=== PATIENT | female | born 1955 | race Caucasian/White ===

== ENCOUNTER → 2017-10-16 09:13 | Outpatient (CLI) | payer OTHER, SELFPAY ==
--- NOTE | 2017-10-16 09:18 | MM_ITS ---
MM Dig screening mamm BI w/CAD CAD Screening ORDERING PHYSICIAN : Jw Montelongo MD PATIENT AGE: 62 years GENDER: Female COMPARISON: Previous mammograms: 2013, 2013, 2016, 2017 INDICATION: 62-year-old. No hormones no complaints previous breast reduction. Stereotactic biopsy April 2013 Family history. Half sister with breast cancer. TECHNIQUE: Standard CC and MLO images were obtained. R2 CAD reviewed. FINDI NGS: ... clinically the technologist notes breast reduction scars at the inferior breast bilaterally . Low-density breast bilaterally with generalized fatty replacement. . No significant new areas concern. Minimal arm glandular elements with mild asymmetry similar to previous studies. CAD computer review highlights no areas of concern either. RIGHT BREAST:A stereotactic biopsy with residual metallic clip marker at biopsy site seen at the retroareolar region on right. Calcifications from 2013 at this area were removed.. No dominant mass to residual suspicious calcification. With Stable appearance over the past few years in this area LEFT BREAST:Left breast stable unchanged. No new findings Follow up one year ------IMPRESSION: --- Stable bilateral mammogram with no significant new findings. Low-density breast. Minor stable changes from previous breast reduction bilaterally, as well as 2013 stereotactic biopsy retroareolar region on right. No new findings BI-RADS Category: 2 Benign Finding(s) RECOMMENDED FOLLOW-UP: 1YR - 1 YEAR FOLLOW-UP (A letter has been sent to the patient regarding results of the study.)
== END ==
PROVIDERS: Family Provider Family Medicine; PCP Family Medicine; Visit Provider Nurse Practitioner Obstetrics & Gynecology
DX: Z12.31 Encounter for screening mammogram for malignant neoplasm of breast (principal)
CPT/HCPCS: 77067

== ENCOUNTER → 2017-11-13 12:40 | Outpatient (CLI) | payer OTHER, SELFPAY ==
[2017-11-13 13:00] LABS: Blood Urea Nitrogen 11 mg/dL (7-18); Creatinine,Serum 0.75 mg/dL (0.55-1.02); Estimated Glomerular Filt Rate 78 ml/min (>60); GFR (African American) 94 ML/MIN (>60)
--- NOTE | 2017-11-13 13:39 | CT_ITS ---
CT sinus wo/w con CLINICAL INDICATION: Chronic sinusitis, right-sided facial pressure, blocked sinus ITS.REASON: right sinus press. ORDERING PHYSICIAN: Luis Fairbanks MD PATIENT AGE: 62 years COMPARISON: None TECHNIQUE:Axial, sagittal, and coronal images are generated and reviewed without and with 100 mL's of Isovue-[address] scans at the facility use one or more dose reduction, viz: automated exposure control; ma/kV adjustment per patient size (including targeted exams where dose is matched to indication; i.e. head); or iterative reconstruction technique. FINDINGS: The frontal, sphenoid, and maxillary sinuses have an unremarkable appearance. There is an opacified right ethmoid air cell posteriorly and superiorly and opacified left ethmoid air cells posteriorly. The ostiomeatal complexes are patent. There is a small right michelle bullosa. No significant nasal septal deviation. No abnormal enhancement. No sinus mass. There are mild osteoarthritic changes of the TMJs on both sides right greater than left. No mastoid effusion. The middle ears are pneumatized. There are some mild sclerosis of the inferior aspect of the left mastoid sinus. IMPRESSION: 1. Bilateral ethmoid sinus disease. 2. Otherwise negative CT sinuses
== END ==
PROVIDERS: Family Provider Family Medicine; PCP Family Medicine; Visit Provider Otolaryngology
DX: J32.0 Chronic maxillary sinusitis (principal); J34.2 Deviated nasal septum; J30.9 Allergic rhinitis, unspecified
CPT/HCPCS: 36415; 70488; 82565; 84520; Q9967

== ENCOUNTER → 2018-10-22 08:16 | Outpatient (CLI) | payer OTHER, SELFPAY ==
--- NOTE | 2018-10-22 08:18 | MM_ITS ---
MM Dig screening mamm BI w/CAD ORDERING PHYSICIAN : Jw Montelongo MD PATIENT AGE: 63 years GENDER: Female COMPARISON: June 1999 October INDICATION: .: Routine Screening Mammogram no hormones. No new complaints. Family history.Half Sister with breast cancer TECHNIQUE: Standard CC and MLO images were obtained. R2 CAD reviewed. FINDINGS: Lower density breast. Breast bilaterally. Minimal fibroglandular elements most evident towards upper outer quadrant. Minimal fibroglandular elements No significant new areas of concern. No dominant mass. No significant calcifications. CAD computer review highlights no areas of concern either. RIGHT BREAST:No new areas of concern. Previous stereotactic biopsy removing calcifications at the retroareolar region, performed I believe in 2012 or 2013. No new areas of concern on the right. LEFT BREAST:Follow-up in one year adequate No significant new areas of concern.Areas of minimal density on MLO view are similar to 2013 IMPRESSION: ...... No significant new areas of concern either breast. Adequate stable appearance . Previous biopsy right breast noted Bilateral follow-up one year recommended BI-RADS Category: 2 Benign Finding(s) RECOMMENDED FOLLOW-UP: 1YR 1 YEAR FOLLOW-UP (A letter has been sent to the patient regarding results of the study.)
== END ==
PROVIDERS: PCP Family Medicine; Visit Provider Nurse Practitioner Obstetrics & Gynecology
DX: Z12.31 Encounter for screening mammogram for malignant neoplasm of breast (principal)
CPT/HCPCS: 77067

== ENCOUNTER → 2019-08-15 08:05 | Outpatient (CLI) | payer MEDICARE, OTHER, SELFPAY ==
--- NOTE | 2019-08-15 08:18 | MR_ITS ---
PROCEDURE: MR HEAD/BRAIN WO/W CON CLINICAL INDICATION: NEW ONSET HEADACHE, NOCTUMAL HEADACHES New onset headache, left-sided headache COMPARISON: No exams were available for comparison TECHNIQUE: Routine multiplanar multi echo sequences are performed without and with gadolinium enhancement. The FINDINGS: No midline shift, mass effect, intracranial hemorrhage, or hydrocephalus. Cerebellopontine angles, cerebellum, and brainstem are unremarkable. There are a few periventricular and subcortical T2 white matter hyperintensities nonspecific but may be seen with ischemic gliotic change from microvascular disease. Incidental note also made of a few perivascular dilated spaces. The pituitary, optic chiasm, corpus callosum, and craniocervical junction have an unremarkable appearance. No enhancing lesions are evident. There is opacified right ethmoid air cells. No sinus air-fluid level or mastoid effusion. IMPRESSION: 1. No acute intracranial findings. 2. Right ethmoid sinus disease. Dictated by: Markell Banks MD 08/16/2019 08:43 Electronically signed by Markell Banks MD in [place] 08/16/2019 08:43
[2019-08-15 08:29] LABS: Blood Urea Nitrogen 16 mg/dl (7-17); Estimated Glomerular Filt Rate 72 ml/min (>60); GFR (African American) 87 ML/MIN (>60)
== END ==
PROVIDERS: PCP Family Medicine; Visit Provider Family Medicine
DX: R51 Headache (principal)
CPT/HCPCS: 36415; 70553; 82565; 84520; A9576

== ENCOUNTER → 2020-01-08 10:39 | Outpatient (CLI) | payer MEDICARE, OTHER, SELFPAY ==
--- NOTE | 2020-01-08 10:40 | MM_ITS ---
PROCEDURE: MM DIG SCREENING MAMM BI W/CAD DIGITAL BREAST TOMOSYNTHESIS INCLUDED Patient Age:64Y CLINICAL INDICATION: Routine screening mammogram. Previous breast reduction bilateral. No hormones but no new complaints. Family history: Half sister with breast cancer COMPARISON: [facility] DIG MAMM-SCREEN YAYO from 03/12/2013 [facility] DIG MAMM-DX UNI-RT from 05/01/2013 [facility] DIG MAMM-SCREEN YAYO from 06/09/2014 [facility] DIG MAMM-SCREEN YAYO from 07/09/2015 [facility] DIG MAMM-SCREEN YAYO W/CAD from 07/11/2016 [facility] MM Dig screening mamm BI w/CAD from 10/16/2017 DIG MAMM-SCREEN YAYO from 10/22/2018 TECHNIQUE: Standard CC and MLO images were obtained. R2 CAD reviewed. Bilateral digital breast tomosynthesis included. FINDINGS: Stable bilateral mammogram with no new areas [id number] residual fibroglandular elements most evident retroareolar region and extending towards upper-outer quadrant but stable architecture with no new dominant nor suspicious mass. No suspicious appearing calcifications but Right breast. Small metallic marker from previous stereotactic biopsy central retroareolar region again noted.. No new areas of concern on the right-stable features Left breast. small density focus at superior left breast MLO view stable since 2016, 2015 2012.-and can be followed. Suspect intramammary node or similar benign feature. On final review also note few small loosely grouped calcifications axillary tail left the breast towards upper-outer quadrant but these are most likely benign calcifications but have developed since previous studies. I strongly favor a benign and thus feel a follow-up left mammogram 6 months left breast-with additional axillary cc view, as well as magnification spot 90 degree and CC view would be most appropriate in the current environment IMPRESSION: LEFT BREAST: Stable architecture no mass lesions left breast, but there are 3 or 4 tiny new calcifications at axillary tail left breast-strongly favor benign but would suggest a follow-up 6 month left mammogram with additional views as outlined in text Stable RIGHT BREAST mammogram with no new areas concern right mammogram 1 year recommended BI-RAD Category: 3 Probably Benign Finding Short Term Follow-up FOLLOW-UP: 1YR 1 Year Follow-up the the the the the (A letter has been sent to the patient regarding results of the study.) Dictated by: Amarjit Sylvester MD 01/13/2020 14:07 Electronically signed by Amarjit Sylvester MD in [place] 01/13/2020 14:07
== END ==
PROVIDERS: PCP Family Medicine; Visit Provider Nurse Practitioner Obstetrics & Gynecology
DX: Z12.31 Encounter for screening mammogram for malignant neoplasm of breast (principal)
CPT/HCPCS: 77063; 77067

== ENCOUNTER → 2020-07-13 14:23 | Outpatient (CLI) | payer MEDICARE, OTHER, SELFPAY ==
--- NOTE | 2020-07-13 14:23 | MM_ITS ---
PROCEDURE: MM DIG MAMM DX UNILAT LT CAD Digital Breast Tomosynthesis Included CLINICAL INDICATION: abnormal findings on previous mammogram COMPARISON: MG [facility] MM Dig screening mamm BI w/CAD from 10/16/2017 MG DIG MAMM-SCREEN YAYO from 10/22/2018 MG MM DIG SCREENING MAMM BI W/CAD from 01/08/2020 TECHNIQUE: Standard CC and MLO images and 3D Tomosynthesis was obtained. R2 CAD reviewed. MLO and CC views were obtained as well. FINDINGS: The small grouping of microcalcifications near the axillary tail left breast are again seen and have somewhat indeterminate amorphous appearance. There may be a couple of additional calcifications on today's exam not seen on the previous left mammogram 01/08/2020. I believe biopsy is indicated since there were not definitely seen on the mammograms prior to December 2019. IMPRESSION: Relatively new somewhat indeterminate grouping of microcalcifications left breast and recommend the patient have BI-RAD Category: 4 Suspicious Abnormality - Biopsy Considered FOLLOW-UP: Biopsy (A letter has been sent to the patient regarding results of the study.) Dictated by: Dr. Jay Jay Trevizo MD 07/21/2020 13:01 Dr. Jay Jay Trevizo MD in [place] 07/21/2020 13:01
== END ==
PROVIDERS: PCP Family Medicine; Visit Provider Nurse Practitioner Obstetrics & Gynecology
DX: R92.8 Other abnormal and inconclusive findings on diagnostic imaging of breast (principal)
CPT/HCPCS: 77061; 77065; G0279

== ENCOUNTER → 2020-08-05 10:19 | Outpatient (CLI) | payer MEDICARE, OTHER, SELFPAY ==
--- NOTE | 2020-08-05 | MM_ITS ---
PROCEDURE: MM STEREOTACTIC LOC LT CLINICAL INDICATION: stereotactic Lt. breast Biopsy Abnormal calcifications in the upper outer quadrant. TECHNIQUE: The patient was given 1 mg of Xanax, Lortab 7 point mg, and analgesia and minor sedation. The patient was placed on the stereotactic table and the left breast calcifications were localized in the most appropriate projection. The left breast was prepped in the routine manner, with sterile prep and the overlying skin anesthetized. A 3 to 4 mm skin incision was performed and the 9 gauge sorus vacuum-assisted core biopsy needle was advanced to the region of the calcification. Pre- and post fire images were obtained. After adequate positioning relative to the calcifications was ensured, multiple biopsies were obtained in the region of the calcifications specifically. The core biopsies obtained were sent for specimen mammography. After the calcifications were indeed identified on the specimen mammogram, the procedure was terminated. The patient tolerated the procedure well without complications. A tiny titanium nonferromagnetic MicroMark was positioned through the mammotome needle into the biopsy site. Pathology: Benign breast parenchymal with fat necrosis. Microcalcifications. Negative for in situ and invasive malignancy. The IMPRESSION: 1. Successful stereotactic vacuum-assisted core biopsy of the breast calcifications. 2. Successful placement of a titanium metal MicroMark. 3. No noted complications. SPECIMEN RADIOGRAPH: The mammographically evident calcifications from the prior study are currently evident within the Mary dish and within the specimens obtained during mammotome procedure. This is considered an adequate specimen and the procedure was terminated. IMPRESSION: Successful removal of described breast calcifications. BREAST MAMMOGRAM: Compared to the prior study, the previously noted calcification have been removed. A small MicroMark clip was inserted into the region of the calcifications. There is evidence of soft tissue changes in the region of the biopsy was soft tissue gas and edema. 4. Adequate placement of the MicroMark clip postbiopsy. 5. Postbiopsy changes within the breast. 6. Suggest six-month mammographic follow-up per routine post biopsy protocol. Dictated by: Markell Banks MD 08/18/2020 09:18 Markell Banks MD in [place] 08/18/2020 09:18
== END ==
PROVIDERS: PCP Family Medicine; Visit Provider Nurse Practitioner Obstetrics & Gynecology
DX: R92.8 Other abnormal and inconclusive findings on diagnostic imaging of breast (principal); R92.1 Mammographic calcification found on diagnostic imaging of breast
CPT/HCPCS: 19081; 76098; 77065; 88305

== ENCOUNTER → 2021-02-08 14:10 | Outpatient (CLI) | payer MEDICARE, OTHER, SELFPAY ==
--- NOTE | 2021-02-08 14:10 | MM_ITS ---
PROCEDURE: MM DIG MAMM DX UNILAT LT CAD Digital Breast Tomosynthesis Included CLINICAL INDICATION: abnormal findings on diagnostic imaging of breast COMPARISON: MG MM DIG SCREENING MAMM BI W/CAD from 01/08/2020 MG MM DIG MAMM DX UNILAT LT CAD from 07/13/2020 MG MM CLIP PLACEMENT LT from 08/05/2020 MG MM SURGICAL SPECIMEN LT from 08/05/2020 MG MM STEREOTACTIC LOC LT from 08/05/2020 TECHNIQUE: Standard CC and MLO images and 3D Tomosynthesis was obtained. R2 CAD reviewed. FINDINGS: There are scattered areas of fibroglandular density. Biopsy clip is present in the upper outer aspect of the left breast. Previously noted microcalcifications longer apparent. No suspicious appearing mass, malignant-appearing microcalcification, architectural distortion, or skin thickening. IMPRESSION: Benign findings. Suggest screening mammogram of the right breast as soon as possible as the patient is due for her yearly follow-up. BI-RAD Category: 2 Benign Finding FOLLOW-UP: Suggest right screening mammogram as soon as possible. (A letter has been sent to the patient regarding results of the study.) Dictated by: Markell Banks MD 02/11/2021 18:31 Markell Banks MD in [place] 02/11/2021 18:31
== END ==
PROVIDERS: PCP Family Medicine; Visit Provider Nurse Practitioner Obstetrics & Gynecology
DX: R92.8 Other abnormal and inconclusive findings on diagnostic imaging of breast (principal)
CPT/HCPCS: 77061; 77065; G0279

== ENCOUNTER → 2021-08-16 07:42 | Outpatient (CLI) | payer MEDICARE, OTHER, SELFPAY ==
--- NOTE | 2021-08-16 07:42 | MM_ITS ---
PROCEDURE INFORMATION: Exam: MG Bilateral Screening 3D Mammography Exam date and time: 08/16/2021 7:42 AM Age: 66 years old Clinical indication: Encounter for screening mammogram for malignant neoplasm of breast TECHNIQUE: Imaging protocol: Bilateral Screening tomosynthesis and 2D mammography including computer-aided detection (CAD) when performed. COMPARISON: 1. MG MM DIG MAMM DX UNILAT LT CAD 02/08/2021 2:11 PM 2. MG MM DIG SCREENING MAMM BI W/CAD 01/08/2020 10:50 AM 3. MG DIG MAMM-SCREEN YAYO 10/22/2018 8:43 AM 4. MG [facility] MM Dig screening mamm BI w/CAD 10/16/2017 9:34 AM 5. MG [facility] DIG MAMM-SCREEN YAYO W/CAD 07/11/2016 9:07 AM 6. MG [facility] DIG MAMM-SCREEN YAYO 07/09/2015 10:53 AM FINDINGS: MAMMOGRAPHY: Breast composition: The breasts are almost entirely fatty. Mass: No suspicious mass. Architectural distortion: None. Calcifications: No suspicious calcifications. Asymmetric density: No developing asymmetry. Skin thickening: None. Axillary adenopathy: None. Other: Bilateral biopsy clips. IMPRESSION: No mammographic evidence of malignancy. Annual screening is recommended unless otherwise clinically indicated. ASSESSMENT: BI-RADS Category 1: Negative
== END ==
PROVIDERS: PCP Nurse Practitioner Family; Visit Provider Nurse Practitioner Obstetrics & Gynecology
DX: Z12.31 Encounter for screening mammogram for malignant neoplasm of breast (principal)
CPT/HCPCS: 77063; 77067

== ENCOUNTER 2022-01-30 08:40 | Emergency (ER) | payer MEDICARE, OTHER, SELFPAY ==
[2022-01-30 08:50] VITALS: BP 132/79; PULSE 93; RESP 18; TEMP 36.9; O2SAT 97; BMI 25.7
--- NOTE | 2022-01-30 09:04 | HMH.EDUTC ---
[facility] Disposition Clinical Impression: Encounter for laboratory testing for COVID-19 virus, Nasal congestion Disposition: Home, Self-Care Condition on Discharge: Good Instructions: DI for COVID-19 (Suspected or Confirmed ), Preventing the Spread of Coronavirus Discharge Instructions Additional Instructions: *Monitor Temp, Over the counter Motrin or Tylenol as directed/as needed Tylenol every 4 hours and Motrin every 6 hours (as long as your family doctor has told you that you can take it) for fever or pain. and straight to ER if unable to lower temp less than 101.0 after medication given *Warm salt water gargles may help to soothe the throat *Throat Lozenges *Warm fluids like tea with honey may help to soothe the throat *Sleep elevated *Humidifier/Vaporizer Follow up IMMEDIATELY for new or worsening symptoms or no Noticeable improvement over the next 48-72 hours. 911 for difficulty breathing or swallowing You were tested for today for COVID19 your test result should be back in the next 24-48 hours, you may check your results on the [facility] My Health Portal Make sure to take your Vitamins Vit. C Vit D and Zinc if you can take them Referrals: Suzanne Mae APRN [Primary Care Provider] - As needed Forms: Work/School Release Medical Decision Making - Moo Inquiry Pt receiving controlled substance: No Moo was queried for this patient: No Vital Signs: 01/30/22 08:50 Temperature 98.4 F Temperature Source Oral Pulse Rate [Left Brachial] 93 H Respiratory Rate 18 Blood Pressure [Left Arm] 132/79 Blood Pressure Mean [Left Arm] 96 Blood Pressure Source [Left Arm] Automatic Cuff Blood Pressure Position [Left Arm] Sitting 02 Sat by Pulse Oximetry 97 Oxygen Delivery Method Room Air Orders (Tests/Meds): ORDERS Category Date Time Status Full Resp Panel w/COVID ([facility]) Routine Lab 01/30/22 09:03 Ordered [facility] HPI - General Stated complaint: Sore throat, upper congestion, loss of taste Time Seen by Provider: 01/30/22 09:04 Mode of Arrival: Ambulatory Source of Information: Patient Limitations: No Limitations Description of Symptoms (Recalled from Triage Doc. by RN): PATIENT C/O BODY ACHES, CONGESTION, AND LOSS OF TASTE SINCE MONDAY NIGHT. HEENT Symptoms (Recalled from RN notes): Yes Resp Symptoms (Recalled from RN notes): No Skin Symptoms (Recalled from RN notes): No MS Symptoms (Recalled from RN notes): Yes Functional Status (Recalled from RN notes): WNL - History of Present Illness Provider Complaint: Patient states that she moved some furniture around on Monday and started having some sinus congestion and runny nose States that she thought it may have been allergies States that she woke up yesterday morning and was feeling achy but thought it may have been from moving the furniture but last night she couldnt taste her soup and she got concerned with COVID so this morning she came in to get tested - Related Data Home Medications Medication Instructions Recorded Confirmed atorvastatin 10 mg tablet mg PO 12/07/20 12/07/20 levothyroxine 88 mcg tablet mcg PO 12/07/20 12/07/20 Allergies Allergy/AdvReac Type Severity Reaction Status Date / Time No Known Allergies Allergy Verified 12/07/20 10:17 - Worker's Comp Is this a Worker's Comp case?: No [facility] History - Hepatitis A Screen Attestation statement:: This patient has been screened for Hepatitis A risk factors. I have reviewed the patient's past medical history: Yes Medical History: Denies:: Cancer, Diabetes Mellitus Type 1, Diabetes Mellitus Type 2, MRSA Other Medical History: Reports: Hypothyroidism, Thyroid Disease Laterality Cases: Bilateral: Tonsillectomy, Total Hip Replacement, Other Other Surgeries: Yes: Appendectomy, Tubal Ligation Amputation: No Fractures: No Comment: breast reduction, back sx - Social History Smoking Status: Never smoker Alcohol Intake: never Substance Use Type: denies use Occupational Status: other
[2022-01-30 09:07] VITALS: BP 132/79; PULSE 93; RESP 18; TEMP 36.9; O2SAT 97
[2022-01-30 09:11] LABS: Adenovirus,PCR Not Detected (NotDetected); Bordetella Pertussis Not Detected (NotDetected); Chlamydophila Pneumoniae, PCR Not Detected (NotDetected); Coronavirus 19, PCR Not Detected (NotDetected); Coronavirus 229E Not Detected (NotDetected); Coronavirus NL63 Not Detected (NotDetected); Coronavirus OC43 Not Detected (NotDetected); Coronovirus HKU1,PCR Not Detected (NotDetected); Human Metapneumovirus Not Detected (NotDetected); Influenza A, PCR Not Detected (NotDetected); Influenza AH1, 2009 Not Detected (NotDetected); Influenza AH1, PCR Not Detected (NotDetected); Influenza AH3,PCR Not Detected (NotDetected); Influenza B, PCR Not Detected (NotDetected); Mycoplasma Pneumoniae, PCR Not Detected (NotDetected); Parainfluenza 1, PCR Not Detected (NotDetected); Parainfluenza 2, PCR Not Detected (NotDetected); Parainfluenza 3, PCR Not Detected (NotDetected); Parainfluenza 4, PCR Not Detected (NotDetected); Respiratory Syncytial Virus Not Detected (NotDetected)
[2022-01-30 12:19] LABS: Rhinovirus/Enterovirus Detected (NotDetected)
== END 2022-01-30 09:10 | disposition home or self-care (01) ==
PROVIDERS: Emergency Provider Nurse Practitioner; PCP Nurse Practitioner Family
DX: B34.8 Other viral infections of unspecified site (principal)
CPT/HCPCS: 87581; 87632; 87798; 99212; C9803; G0463; U0003; U0005

== ENCOUNTER → 2022-08-22 10:07 | Outpatient (CLI) | payer MEDICARE, OTHER, SELFPAY ==
--- NOTE | 2022-08-22 10:11 | MM_ITS ---
PROCEDURE INFORMATION: Exam: MG Bilateral Screening 3D Mammography Exam date and time: 08/22/2022 10:13 AM Age: 67 years old Clinical indication: Screening examination TECHNIQUE: Imaging protocol: Bilateral Screening tomosynthesis and 2D mammography including computer-aided detection (CAD) when performed. COMPARISON: 1. MG MM DIG SCREENING MAMM BI W/CAD 08/16/2021 7:48 AM 2. MG MM DIG MAMM DX UNILAT LT CAD 02/08/2021 2:11 PM FINDINGS: MAMMOGRAPHY: Breast composition: The breasts are almost entirely fatty. Mass: None. Architectural distortion: None. Calcifications: No suspicious calcifications. Asymmetric density: None. Skin thickening: None. Axillary adenopathy: None. IMPRESSION: No mammographic evidence of malignancy. Annual screening is recommended unless otherwise clinically indicated. ASSESSMENT: BI-RADS Category 1: Negative
== END ==
PROVIDERS: PCP Nurse Practitioner Family; Visit Provider Nurse Practitioner Family
DX: Z12.31 Encounter for screening mammogram for malignant neoplasm of breast (principal)
CPT/HCPCS: 77063; 77067

== ENCOUNTER → 2022-08-29 11:45 | Outpatient (CLI) | payer MEDICARE, OTHER, SELFPAY ==
--- NOTE | 2022-08-29 11:52 | XR_ITS ---
FINAL REPORT CLINICAL HISTORY: LEFT LATERAL ANKLE PAIN, no fall FINDINGS: LEFT ANKLE Three views demonstrate no acute fracture or dislocation. The visualized joint spaces are normally aligned. The soft tissues are unremarkable. IMPRESSION: No acute bony abnormality. Reviewed, Interpreted and Dictated by Arnulfo Prasad MD Transcribed by Shaila Shanks Authenticated and . [facility]
== END ==
PROVIDERS: PCP Nurse Practitioner Family; Visit Provider Nurse Practitioner Family
DX: M25.572 Pain in left ankle and joints of left foot (principal)
CPT/HCPCS: 73610

== ENCOUNTER → 2022-09-05 08:45 | Outpatient (CLI) | payer MEDICARE, OTHER, SELFPAY ==
--- NOTE | 2022-09-05 08:49 | XR_ITS ---
FINAL REPORT TECHNIQUE: Bone densitometry calculations of the lumbar spine and left hip were obtained. CLINICAL HISTORY: post menopausal FINDINGS: DEXA BONE DENSITY AXIAL SKELETON Using L1-4, the bone mineral density of the spine is 0.748a g/cm2, corresponding to T-score of -2.7 with a Z-score of -0.7 . Using the left hip, the bone mineral density of the total at is 0.633 g/cm2, corresponding to a T-score of -2.5 with a Z-score of -1.1. Using the right hip, the bone mineral density of the femoral neck is 0.611 g/cm2, corresponding to a T-score of -2.1 with a Z-score of -0.4. NOTE: T-score: Standard deviation compared with peak bone mass of young adult mean. *Following the recommendations of the International Society of Bone Densitometry, classification of hip BMD is based on the lower of two T-scores; total hip or femoral neck. IMPRESSION: Osteoporosis: Lowest T-score is at or below -2.5. This patient's T-score meets the World Health Organization criteria for osteoporosis. FRAX not reported because: Some T-score for Spine Total or hip total or femoral neck at or below -2.5 Reviewed, Interpreted and Dictated by Patricia Ware MD Transcribed by Karen Montgomery Authenticated and [facility]
== END ==
PROVIDERS: PCP Nurse Practitioner Family; Visit Provider Nurse Practitioner Family
DX: Z78.0 Asymptomatic menopausal state (principal); Z13.820 Encounter for screening for osteoporosis
CPT/HCPCS: 77080

== ENCOUNTER → 2022-09-08 11:23 | Outpatient (CLI) | payer MEDICARE, OTHER, SELFPAY ==
--- NOTE | 2022-09-08 | CA_ITS ---
FINAL REPORT CLINICAL HISTORY: Left lateral ankle pain x 2 weeks FINDINGS: DUPLEX VENOUS SONOGRAPHY OF THE LEFT LOWER EXTREMITY Multiple transverse and longitudinal scans were performed of the femoropopliteal deep venous system, with augmentation and compression maneuvers. Normal phasic flow was noted in the visualized deep venous system. No intraluminal increased echogenicity is noted to suggest thrombus. There is normal compression and augmentation of the venous structures. No abnormal venous collaterals are seen. IMPRESSION: No evidence of deep venous thrombosis of the left lower extremity. Reviewed, Interpreted and Dictated by Patricia Ware MD Transcribed by Karen Montgomery Authenticated and [facility]
--- NOTE | 2022-09-08 11:34 | XR_ITS ---
FINAL REPORT CLINICAL HISTORY: LEFT LEG SWELLING COMPARISON: 08/29/2022 FINDINGS: AP, oblique, and lateral views of the left ankle were obtained. There is no prior exam for comparison. The bones are osteopenic. There is no fracture or dislocation. There is mild degenerative joint disease. Soft tissues are normal. IMPRESSION: Mild degenerative joint disease with no acute osseous abnormality of the left ankle. Reviewed, Interpreted and Dictated by Patricia Ware MD Transcribed by Karen Montgomery Authenticated and [facility]
[2022-09-08 12:47] LABS: Basophils # 0.1 K/mm3 (0-0.2); Eosinophils # 0.2 K/mm3 (0.0-0.4); Hematocrit 51.8 % (37.0-47.0); Lymphocytes # 2.4 K/mm3 (0.7-4.5); Lymphocytes % 32.1 % (10-50); Mean Corpuscular HGB Conc 30.8 g/dL (31.8-35.4); Mean Corpuscular Volume 93.9 fl (81-99); Mean Platelet Volume 7.7 fl (7.4-10.4); Monocytes # 0.5 K/mm3 (0.1-1.0); Monocytes % 5.9 % (1.7-9.3); Neutrophils # 4.5 K/mm3 (1.8-7.8); Platelet Count 290 K/mm3 (142-424); Red Blood Count 5.52 M/mm3 (4.20-5.40); Red Cell Distribution Width 13.9 % (11.5-17.5); White Blood Count 7.6 K/mm3 (4.8-10.8)
[2022-09-08 13:46] LABS: Alanine Aminotransferase 23 U/L (12-78); Albumin Level 4.8 g/dl (3.5-5.0); Alkaline Phosphatase 90 U/L (38-126); Anion Gap 13.4 mEq/L (5-15); Aspartate Amino Transferase 31 U/L (14-36); Bilirubin,Total 0.6 mg/dl (0.2-1.3); Blood Urea Nitrogen 16 mg/dl (7-17); Calcium 9.4 mg/dl (8.4-10.2); Carbon Dioxide 30 mmol/L (22.0-30.0); Chloride 101 mmol/L (98-107); Chol/HDL Ratio 4.8 (1-3.5); Cholesterol 191 mg/dl (140-200); Estimated Glomerular Filt Rate 83 ml/min (>60); GFR (African American) 101 ML/MIN (>60); Globulin 2.4 g/dL (1.3-3.2); Glucose 82 mg/dl (74-100); HDL Cholesterol 40 mg/dl (40-60); Potassium 4.4 mmoL/L (3.5-5.1); Sodium 140 mmol/L (136-145); Total Protein,Serum 7.2 g/dl (6.3-8.2); Triglycerides 121 mg/dl (30-150); Uric Acid 4.1 mg/dl (2.5-6.2); VLDL Cholesterol 24 mg/dL (0-40)
[2022-09-08 13:57] LABS: Direct LDL Cholesterol 130.16 mg/dL (100-129)
[2022-09-08 14:17] LABS: Thyroid Stimulating Hormone 0.44 uIU/mL (0.465-4.68)
== END ==
PROVIDERS: PCP Nurse Practitioner Family; Visit Provider Nurse Practitioner Family
DX: M79.605 Pain in left leg (principal); M79.89 Other specified soft tissue disorders; E78.5 Hyperlipidemia, unspecified; E03.9 Hypothyroidism, unspecified
CPT/HCPCS: 36415; 73610; 80053; 80061; 84443; 84550; 85025; 93971

== ENCOUNTER → 2022-09-23 13:05 | Outpatient (CLI) | payer MEDICARE, OTHER, SELFPAY ==
--- NOTE | 2022-09-23 13:15 | MR_ITS ---
FINAL REPORT CLINICAL HISTORY: LEFT LEG PAIN.... LEFT LEG SWELLING 1 month ago when walking pt started having lateral sided ankle pain that extends up back of lower leg to knee COMPARISON: Plain film dated 09/08/2022 FINDINGS: Multiplanar MR imaging of the left lower leg was performed without contrast. There is a subacute nondisplaced fracture of the distal fibular diaphysis with bone marrow edema and adjacent soft tissue edema. No bony mass is identified. There is mild increased signal in the gastrocnemius muscle, may represent mild muscle injury or myositis. No soft tissue mass or cyst is identified. IMPRESSION: Subacute nondisplaced fracture of the distal fibular diaphysis. Increased signal in the gastrocnemius muscle, may represent muscle injury versus myositis. Reviewed, Interpreted and Dictated by Ben Tong III, MD Transcribed by Toyin Sam Authenticated and [facility]
== END ==
PROVIDERS: PCP Nurse Practitioner Family; Visit Provider Nurse Practitioner Family
DX: M79.605 Pain in left leg (principal); M79.89 Other specified soft tissue disorders
CPT/HCPCS: 73718

== ENCOUNTER 2022-09-26 09:53 | Outpatient (CLI) | payer MEDICARE, OTHER, SELFPAY ==
[2022-09-26 10:31] VITALS: BP 124/75; PULSE 74; RESP 18; TEMP 36.8; O2SAT 99
== END 2022-09-26 10:45 | disposition home or self-care (01) ==
LOC: INF 09:54
PROVIDERS: PCP Nurse Practitioner Family; Visit Provider Nurse Practitioner Family
DX: M81.0 Age-related osteoporosis without current pathological fracture (principal)
CPT/HCPCS: 96372; J0897

== ENCOUNTER 2023-04-03 09:35 | Outpatient (CLI) | payer MEDICARE, OTHER, SELFPAY ==
[2023-04-03 09:48] VITALS: BP 111/74; PULSE 73; RESP 18; TEMP 36.4; O2SAT 98
== END 2023-04-03 10:15 | disposition home or self-care (01) ==
LOC: INF 09:37
PROVIDERS: PCP Nurse Practitioner Family; Visit Provider Nurse Practitioner Family
DX: M81.0 Age-related osteoporosis without current pathological fracture (principal)
CPT/HCPCS: 96372; J0897

== ENCOUNTER 2023-07-11 08:54 | Outpatient (POV) | payer MEDICARE, OTHER, SELFPAY | END 2023-07-11 23:59 | disposition home or self-care (01) | LOC: SC 08:55 | PROVIDERS: PCP Nurse Practitioner Family; Visit Provider Dermatology | DX: Z00.00 Encounter for general adult medical examination without abnormal findings (principal) ==

== ENCOUNTER 2023-08-28 10:51 | Outpatient (CLI) | payer MEDICARE, OTHER, SELFPAY ==
--- NOTE | 2023-08-28 10:51 | MM_ITS ---
PROCEDURE INFORMATION: Exam: MG Bilateral Screening 3D Mammography Exam date and time: 08/28/2023 10:38 AM Age: 68 years old Clinical indication: Screening mammogram. Family history of breast cancer in sister at the age of 54 TECHNIQUE: Imaging protocol: Bilateral Screening tomosynthesis and 2D mammography including computer-aided detection (CAD) when performed. COMPARISON: 1. MG MM DIG SCREENING MAMM BI W/CAD 08/22/2022 10:13 AM 2. MG MM DIG SCREENING MAMM BI W/CAD 08/16/2021 7:48 AM 3. MG MM DIG MAMM DX UNILAT LT CAD 02/08/2021 2:11 PM 4. MG MM CLIP PLACEMENT LT 08/05/2020 12:05 PM FINDINGS: MAMMOGRAPHY: Breast composition: The breasts are almost entirely fatty. Mass: None. Architectural distortion: Changes consistent with bilateral reduction mammoplasty are present. Calcifications: No new or suspicious calcifications are present Asymmetric density: No new or suspicious asymmetric density is present Skin thickening: None. Axillary adenopathy: None. IMPRESSION: No mammographic evidence of malignancy. Recommend annual screening mammography unless otherwise clinically indicated. ASSESSMENT: BI-RADS category 2: Benign.
== END 2023-08-28 23:59 ==
PROVIDERS: PCP Nurse Practitioner Family; Visit Provider Nurse Practitioner Obstetrics & Gynecology
DX: Z12.31 Encounter for screening mammogram for malignant neoplasm of breast (principal)
CPT/HCPCS: 77063; 77067

== ENCOUNTER 2023-10-09 08:30 | Outpatient (CLI) | payer MEDICARE, OTHER, SELFPAY ==
[2023-10-09 08:38] VITALS: BP 110/63; PULSE 61; RESP 20; TEMP 36.6; O2SAT 98
[2023-10-09] MEDS: DENOSUMAB 60 MG/ML SYRINGE SQ (08:45)
== END 2023-10-09 09:00 | disposition home or self-care (01) ==
LOC: INF 08:32
PROVIDERS: PCP Nurse Practitioner Family; Visit Provider Nurse Practitioner Family
DX: M81.0 Age-related osteoporosis without current pathological fracture (principal)
CPT/HCPCS: 96372; J0897

== ENCOUNTER 2024-03-18 12:14 | Outpatient (CLI) | payer MEDICARE, OTHER, SELFPAY ==
[2024-03-18 12:38] LABS: Blood Urea Nitrogen 14 mg/dl (7-17); Estimated Glomerular Filt Rate 71 ml/min (>60); GFR (African American) 86 ML/MIN (>60)
== END 2024-03-18 23:59 | disposition home or self-care (01) ==
LOC: LAB 12:16
PROVIDERS: PCP Nurse Practitioner Family; Visit Provider Nurse Practitioner Family
DX: Z01.812 Encounter for preprocedural laboratory examination (principal)
CPT/HCPCS: 36415; 82565; 84520

== ENCOUNTER 2024-03-19 07:46 | Outpatient (CLI) | payer MEDICARE, OTHER, SELFPAY ==
--- NOTE | 2024-03-19 07:52 | MR_ITS ---
FINAL REPORT CLINICAL HISTORY: LUMBAGO W/SCIATICA/CHRONIC PAIN right leg pain, chronic COMPARISON: None FINDINGS: Multiplanar MR imaging of the lumbar spine was performed without and with contrast. On the sagittal T2-weighted images, disc degeneration is seen at multiple levels. There is 7 mm of anterolisthesis of L5 on S1, and mild anterolisthesis of L4 on L5. Endplate degenerative changes are noted at several levels, greatest at the L5-S1 level. There is no evidence of fracture. The conus is seen at approximately the L1 level and has an unremarkable appearance. L1-2: No significant canal stenosis or neuroforaminal narrowing is seen. L2-3: No significant canal stenosis or neuroforaminal narrowing is seen. L3-4: An annular bulge is present. Facet arthropathy is present. No significant canal stenosis or neuroforaminal narrowing is seen. L4-5: An annular bulge is present. There is facet arthropathy and osteophytes present, with severe right and moderate left neuroforaminal narrowing. L5-S1: L5 laminectomies have been performed at this level. An annular bulge is present with facet arthropathy and osteophytes. There is a 13 mm calcification posterior to the disc that appears chronic and may represent either a calcified extruded disc fragment or an unusual osteophyte. There is grade 2 anterolisthesis of L5 on S1 at this level, with moderate bilateral neural foraminal narrowing. No abnormal contrast enhancement is identified. IMPRESSION: Multilevel lumbar degenerative change as described, most prominent at the L5-S1 level as described. Reviewed, Interpreted and Dictated by Ben Tong III, MD Transcribed by Karo Gallardo Authenticated and [facility]
[2024-03-19] MEDS: SODIUM CHLORIDE 0.9% 10ML SYR (RAD ONLY) 10 ML IV (08:49)
[2024-03-19] MEDS: 0.9 % SODIUM CHLORIDE 50 ML VIAL 20 ML IV (08:49)
[2024-03-19] MEDS: GADOTERIDOL INJ 20ML SYRINGE 15 ML IV (08:50)
== END 2024-03-19 23:59 | disposition home or self-care (01) ==
LOC: RAD 07:47
PROVIDERS: PCP Nurse Practitioner Family; Visit Provider Nurse Practitioner Family
DX: M54.41 Lumbago with sciatica, right side (principal); M54.42 Lumbago with sciatica, left side; G89.29 Other chronic pain
CPT/HCPCS: 72158; A9576

== ENCOUNTER 2024-04-15 08:09 | Outpatient (CLI) | payer MEDICARE, OTHER, SELFPAY ==
--- OUTSIDE RECORDS SUMMARY | 2024-04-15 08:12 | XMS_ITS ---
Author Organization [facility] Address [address] [place] [address] Phone Care Team Providers Care Paralegals Name Role Phone Zak JANG, Oniel Robles Unavailable [phone] Suzanne Mae APRN Unavailable Unavailable Problems Includes: Active, inactive, and resolved Problems All Visits Onset Date Resolved Date Provider Condition S tatus Left Ankle Joint Pain 09/29/2022 Romaine Villegas Active Last Documented On 3 9:54AM ; [facility] Joint Pain, Localized in the Knee 05/23/2017 Bre Crespo MD Active Last Documented On 7 1:08PM ; [facility] Joint Pain in the Toes 07/26/2012 Oniel garland MD Active Last Documented On 3 2:38PM ; [facility] Plan of Treatment Referrals To Diagnosis Consult with Orthopedic Veronica Leon PA-C Note: IHR per ES L distal fi bula fx4.24 @ 10am//sv Last Documented On 3 1:22PM ; [facility] Instructions to patient Lose weight Last Documented On 3 10:01AM ; [facility] Lose weight Last Documented On 3 10:12AM ; [facility] Instructions for patient Last Documented On 7 1:14PM ; [facility] Assessments Includes: Assessments for all patient encounters No Assessments Recorded Instructions Includes: Instructions for all patient encounters Instructions to patient Lose weight Last Documented On 3 10:01AM ; [facility] Lose weight Last Documented On 3 10:12AM ; [facility] Instructions for patient Last Documented On 7 1:14PM ; [facility], [facility] Medical Equipment - Implanted Devices Includes: Current and historical Devices No Medical Equipment Recorded Medications Includes: Current and historical Medications Current Medications (continue as prescribed) Prolia 60 MG/ML Subcutaneous Solution Prefilled Syring e 10/03/2022 Provider: Diagnosis: Last Documented On 3 10:07AM By Jasmin Pedro ; [facility], [facility] Atorvastatin Calcium 20 MG Oral Tablet 09/09/2022 Pr ovider: Diagnosis: Last Documented On 3 10:07AM By Jasmin Pedro ; [facility], [facility] Levothyroxine Sodium 88 MCG Oral Tablet 07/26/2022 P rovider: Diagnosis: Last Documented On 3 10:11AM By Claudia Campbell ; [facility], [facility] Synthroid 50 MCG OR TABS 07/26/2012 Provider: Diagnosis: Last Documented On 3 2:38PM By Hilario 4 User ; [facility], [facility] Past Medications on file Atorvastatin Calcium 20 MG Oral Tablet 09/09/2022 - Provider: Diagnosis: Last Documented On 3 10:11AM By Claudia Campbell ; [facility], [facility] Mobic 15MG Oral Tablet 06/02/2017 - 06/17/2017 Provide r: Oniel Crespo MD Diagnosis: 1 tab every 12 hours Last Documented On 7 8:51AM By Chalo Pollock ; [facility], [facility] Voltaren 1% TD GEL 07/26/2012 - 08/25/2012 Provider: CHARLEEN LEY PA-C Diagnosis: ab Last Documented On 3 3:35PM By Hilario Weiner User ; [facility], [facility] Lipitor 10 MG OR TABS 07/26/2012 - 05/23/2017 Provider : Diagnosis: Last Documented On 7 1:12PM By Valentin Fonseca ; [facility], [facility] Relafen 500 mg OR TABS 07/26/2012 - 05/23/2017 Provide r: CHARLEEN JIL PA-C Diagnosis: ab Last Documented On 7 1:12PM By Valentin Fonseca ; [facility], [facility] Medications Administered Includes: Administered Medications in patient's chart No Administered Medications Recorded Results Includes: Results from 04/15/2023 through 04/15/2024 No Results Recorded For Specified Dates History of Present Illness History of Present Illness not supported for this document type No History of Present Illness Recorded Social History Description Last Updated No recent change in diet 10/03/2022 Last Documented On 3 10:37AM ; [facility] Not a current smoker. 10/03/2022 Last Documented On 3 10:37AM ; [facility] Not using drugs 10/03/2022 Last Documented On 3 10:37AM ; [facility] Tobacco non-user 09/29/2022 Last Documented On 3 1:22PM ; [facility] Caffeine use 05/23/2017 Last Documented On 7 4:12PM ; [facility] Not a current smoker 05/23/2017 Last Documented On 7 4:12PM ; [facility] Not exercising regularly 05/23/2017 Last Documented On 7 4:12PM ; [facility] Not using alcohol 05/23/2017 Last Documented On 7 4:12PM ; [facility] No tobacco use 07/26/2012 Last Documented On 3 3:51PM ; [facility] Smoking status : Never smoked/ Recode: 4 07/26/2012 Last Documented On 3 3:51PM ; [facility], [facility] Procedures and Surgical History Surgical History Last Updated History of appendectomy 06/02/2017 Last Documented On 7 8:37AM ; [facility] Medical History Includes: Medical History in patient's chart Description Last Updated Thyroid disease 06/02/2017 Last Documented On 7 8:37AM ; [facility] Family History Includes: Family History in patient's chart Description Last Updated Family history of heart disease 06/02/20 Last Documented On 7 8:37AM ; [facility], [facility] Review of Systems Review of Systems not supported for this document type No Review of Systems Recorded Mental Status No Mental Status Recorded Functional Status No Functional Status Recorded Physical Exam Physical Exam not supported for this document type No Physical Exam Recorded Allergies Includes: Active, inactive, and resolved Allergies No Known Allergies Insurance Includes: Active Insurance Policies Plan Name Member ID Group # Subscriber Relationship Effect sarah Dates 1 - Medicare Part B [facility] [id number] [place] Ring Self 2 - [facility] Medicare Supplement Insurance [id number] Georgia Ring Self Clinical Notes Includes: Signed Clinical Notes starting from 05/26/2022 No Clinical Notes Recorded
--- OUTSIDE RECORDS SUMMARY | 2024-04-15 08:12 | XMS_ITS ---
Care Plan - [facility], [facility] Created on: April 15, 2024 Georgia Paris : 1955 Sex: Female Author Organization [facility], [facility] Address [address] [place] [address] Phone Care Team Providers Care Ham Sawyer Name Role Phone Zak JANG, Oniel Robles Unavailable Unavailable Suzanne Mae APRN Unavailable Unavailable
--- OUTSIDE RECORDS SUMMARY | 2024-04-15 08:13 | XMS_ITS | Clinical Summary ---
Author Organization [facility] , [facility] Address [address] [place] [address] Phone Care Team Providers Care Wood Fence Erector Name Role Phone Zak JANG, Oniel Robles Unavailable [phone] Suzanne Mae APRN Unavailable Unavailable Reason for Visit and Chief Complaint The Chief Complaint is: left ankle pain Problems Includes: Problems addressed during this encounter and other active Problems Current Visit Onset Date Resolved Date Provider Sonyao n Status Left Ankle Joint Pain 09/29/2022 Romaine Villegas Active Last Documented On 3 9:54AM ; [facility], [facility] Past Visits Onset Date Resolved Date Provider Condition Status Joint Pain, Localized in the Knee 05/23/2017 Oniel Crespo MD Active Last Documented On 7 1:08PM ; [facility], [facility] Joint Pain in the Toes 07/26/2012 Oniel garland MD Active Last Documented On 3 2:38PM ; [facility], [facility] Plan of Treatment Fall Risk Assessment: This patient has been identified as a fall risk. Balance/gait along with postural blood pressure, vision and home fall hazards have been assessed. Medications have been reviewed, and recommendations made with regard to contributing factors for future falls. Plan of care: Consideration of vitamin D supplementation along with balance and strength training with consideration for formal physical therapy has been discussed with the patient. - Last Documented On 09/29/2022 1:22PM ; [facility], [facility] Referrals To Diagnosis Consult with Orthopedic Veronica Leon PA-C Note: IHR per ES L distal fi bula fx4.24 @ 10am//sv Last Documented On 3 1:22PM ; [facility], [facility] Instructions to patient Lose weight Last Documented On 3 10:12AM ; [facility], [facility] Assessments Includes: Assessments from this encounter Findings Left distal fibula fracture - Last Documented On 09/29/2022 1:22PM ; [facility], [facility] discussed with Ms. Paris that she does have a healing left distal fibula fracture likely related to her increasing activity level. Fortunately she has been evaluated with a DEXA scan and started Prolia. I would like her to see a bone Health specialist and will refer her to Veronica here for further evaluation of her bone health. Right now however it appears like the fracture is healing. There is good callus formation. She has minimal tenderness and is ambulating without pain. Therefore we recommended reducing her walking until this is fully healed. If she is not continuing to improve and happy to see her back in the next month. - Last Documented On 09/29/2022 1:22PM ; [facility], [facility] Instructions Includes: Instructions from this encounter Instructions to patient Lose weight Last Documented On 3 10:12AM ; [facility], [facility] Medical Equipment - Implanted Devices Includes: Current Devices No Medical Equipment Recorded Medications Includes: Medications discussed during this encounter and other current Medications Discontinued / Stopped on this date on 09/09/2022 Atorvastatin Calcium 20 MG Oral Tablet Pr ovider: Diagnosis: Last Documented On 3 10:11AM By Claudia Campbell ; [facility], [facility] Current Medications (continue as prescribed) Prolia 60 MG/ML Subcutaneous Solution Prefilled Syring e 10/03/2022 Provider: Diagnosis: Last Documented On 3 10:07AM By Jasmin Brown [facility], [facility] Atorvastatin Calcium 20 MG Oral Tablet 09/09/2022 Pr ovider: Diagnosis: Last Documented On 3 10:07AM By Jasmin Brown [facility], [facility] Levothyroxine Sodium 88 MCG Oral Tablet 07/26/2022 Ruby huerta: Diagnosis: Last Documented On 3 10:11AM By Claudia Brown [facility], [facility] Synthroid 50 MCG OR TABS 07/26/2012 Provider: Diagnosis: Last Documented On 3 2:38PM By Hilario Herrera ; [facility] Past Medications on file Mobic 15MG Oral Tablet 06/02/2017 - 06/17/2017 Provide r: Oniel Crespo MD Diagnosis: 1 tab every 12 hours Last Documented On 7 8:51AM By Chalo Pollock ; [facility] Voltaren 1% TD GEL 07/26/2012 - 08/25/2012 Provider: CHARLEEN LEY PA-C Diagnosis: ab Last Documented On 3 3:35PM By Hilario 3 User ; [facility] Medications Administered Includes: Administered Medications from this encounter No Administered Medications Recorded Vital Signs Includes: Vital Signs from this encounter Vital Name 09/29/2022 10:12A Height (in) 65 Weight (lb) 161 Body Mass Index 26.8 Body Surface Area 1.8 Note: ab Last Documented: On 09/29/2022 10:12A M ; [facility] Results Includes: Results discussed during this encounter No Results Recorded For Specified Dates History of Present Illness Includes: History of Present Illness from this encounter ASAF Paris is a 67 year old female. - Allergy list reviewed - Problem list reviewed - Medication list reviewed Presents for evaluation of left ankle pain. About 5 weeks ago she was walking and then felt pain over the lateral aspect of the ankle. The pain continued. She was evaluated and found to have a nondisplaced fracture on MRI. She had recently started a new exercise program and was walking 10,000 steps a day. She also has a history of a stress fracture on the right ankle about 30 years ago. Since then the pain has significantly improved. Right now she walks without pain. Occasionally she will feel a twinge of pain over the lateral aspect of the ankle. She has recently started Prolia. Social History Description Last Updated Tobacco non-user 09/29/2022 Last Documented On 3 1:22PM ; [facility] Smoking Status Unknown Procedures and Surgical History Includes: Procedures from this encounter Procedures Code Diagnosis Performing Provider Service L ocation Service Date use of tobacco assessment performed 1000F Last Documented On 3 10:12AM ; [facility] patient screened for future fall risk: documentation of any fall with injury in past year 1100F Last Documented On 3 10:12AM ; [facility] Medical History Includes: Medical History addressed during this encounter No Medical History Recorded Family History Includes: Family History addressed during this encounter No Family History Recorded Review of Systems Includes: Review of Systems from this encounter No Review of Systems Recorded Mental Status Includes: Mental Status from this encounter No Mental Status Recorded Functional Status Includes: Functional Status from this encounter No Functional Status Recorded Physical Exam Includes: Physical Exam from this encounter Allergies Includes: Active Allergies No Known Allergies Encounters Encounter Provider Location Date Check-In Time Check-Out Time Diagnosis Next Available Non-Specified Physician Romaine Galindo MD [facility] 09/30/19 23 9:52AM 10:27AM Insurance Includes: Active Insurance Policies Plan Name Member ID Group # Subscriber Relationship Effect sarah Dates 1 - Medicare Part B [facility] [id number] Georgia Paris Self 2 - [facility] Insurance [id number] Georgia Paris Self Clinical Notes Includes: Clinical Notes from this encounter * Progress note Date Encounter Last Documented by 09/29/2022 Next Available Non-S pecified Physician Last documented on 09/29/2022; 1:22 PM, Romaine Galindo MD; [facility] Active Problems & Conditions - Joint Pain in the Toes - Joint Pain, Localized in the Knee - Left Ankle Joint Pain Chief Complaint The Chief Complaint is: Left ankle pain. History of Present Illness Georgia Paris is a 67 year old female. - Allergy list reviewed - Problem list reviewed - Medication list reviewed Presents for evaluation of left ankle pain. About 5 weeks ago she was walking and then felt pain over the lateral aspect of the ankle. The pain continued. She was evaluated and found to have a nondisplaced fracture on MRI. She had recently started a new exercise program and was walking 10,000 steps a day. She also has a history of a stress fracture on the right ankle about 30 years ago. Since then the pain has significantly improved. Right now she walks without pain. Occasionally she will feel a twinge of pain over the lateral aspect of the ankle. She has recently started Prolia. Current Medication - Levothyroxine Sodium 88 MCG Oral Tablet 90 days, 0 refills - Synthroid 50 MCG Tablet 0 days, 0 refills Social History Tobacco use: Tobacco non-user. Allergies - No Known Allergies Physical Findings - Vitals taken 09/29/2022 10:12 am ab Height 65 in Weight 161 lbs Body Mass Index 26.8 kg/m2 Body Surface Area 1.8 m2 Standard Measurements: - Patient was overweight. General: The patient is alert and oriented in no distress. Respiratory: Nonlabored breathing in the exam room Cardiac: Extremities are warm and well-perfused. Skin: Skin appears clean dry and intact. Musculoskeletal exam: Patient walks with an Steady gait. Exam of the left ankle demonstrates minimal tenderness over the distal fibula and distal fibula diaphysis. Full active and passive range of motion of the ankle. Nontender to palpation over the hindfoot midfoot forefoot. Calf is soft and nontender. Palpable dorsalis pedis pulse. Tests Review x-ray obtained and personally reviewed today of the left ankle demonstrate a nondisplaced left distal fibula fracture with callus formation. I reviewed the outside medical record reports consisting of a MRI of the left ankle dated 09/23/2022 showing a nondisplaced fracture of the distal fibula. There is also left ankle x-ray series dated 09/08/2022 showing no fracture. There is a DVT scan dated 09/08/2022 showing no evidence of DVT. Counseling/Education - Lose weight Plan StartCited - Other Referral/Orthopedic: Consult with Orthopedic Instructions: IHR per ES L distal fibula fx 4.24 @ 10am//sv EndCited Fall Risk Assessment: This patient has been identified as a fall risk. Balance/gait along with postural blood pressure, vision and home fall hazards have been assessed. Medications have been reviewed, and recommendations made with regard to contributing factors for future falls. Plan of care: Consideration of vitamin D supplementation along with balance and strength training with consideration for formal physical therapy has been discussed with the patient. Notes This dictation was done with voice recognition software and may contain errors and omissions. Practice Management Use of tobacco assessment performed and patient screened for future fall risk documentation of any fall with injury in past year. Care Team - AMALIA HICKS MD - ROOF ASSEMBLER User Defined 5 Left distal fibula fracture discussed with Ms. Paris that she does have a healing left distal fibula fracture likely related to her increasing activity level. Fortunately she has been evaluated with a DEXA scan and started Prolia. I would like her to see a bone Health specialist and will refer her to Veronica here for further evaluation of her bone health. Right now however it appears like the fracture is healing. There is good callus formation. She has minimal tenderness and is ambulating without pain. Therefore we recommended reducing her walking until this is fully healed. If she is not continuing to improve and happy to see her back in the next month.
--- OUTSIDE RECORDS SUMMARY | 2024-04-15 08:13 | XMS_ITS | Clinical Summary ---
Author Organization [facility] Address [address] [place] [address] Phone Care Team Providers Care Sports Fitness And Wellness Director Name Role Phone Zak JANG, Oniel Robles Unavailable [phone] Suzanne Mae APRN Unavailable Unavailable Reason for Visit and Chief Complaint The Chief Complaint is: Left knee pain Problems Includes: Problems addressed during this encounter and other active Problems Current Visit Onset Date Resolved Date Provider Conditio n Status Joint Pain, Localized in the Knee 05/23/2017 Oniel Crespo MD Active Last Documented On 7 1:08PM ; [facility] Past Visits Onset Date Resolved Date Provider Condition Status Left Ankle Joint Pain 09/29/2022 Romaine Villegas Active Last Documented On 3 9:54AM ; [facility] Joint Pain in the Toes 07/26/2012 Oniel garland MD Active Last Documented On 3 2:38PM ; [facility] Plan of Treatment Instructions to patient Instructions for patient Last Documented On 7 1:14PM ; [facility] Assessments Includes: Assessments from this encounter Findings Georgia Raina is a 62 clinical assessment of left knee pain. - Last Documented On 05/25/2017 4:12PM ; [facility] She fell landing directly on her left knee 5 days ago. She was holding her [id number] that time and then protecting him she landed directly down on these and then rolled forward. She does not recall any twisting or angulatory force to the knees. - Last Documented On 05/25/2017 4:12PM ; [facility] Initially she did not require any treatment but later that day she started applying ice. This has helped. She is slightly better today than she was a few days ago. - Last Documented On 05/25/2017 4:12PM ; [facility] She said the pain varies in its intensity but at its worse is a 7/10. She has just an [id number] brace. - Last Documented On 05/25/2017 4:12PM ; [facility] Past medical history is unremarkable and noncontributory - Last Documented On 05/25/2017 4:12PM ; [facility] Physical examination: well-nourished well-developed woman looks her stated age. She is alert, oriented ? 3 , normal mood and affect. - Last Documented On 05/25/2017 4:12PM ; [facility] exam of her left knee demonstrates no ecchymosis or localized swelling. she does have tenderness with distal pole of patella The knee is not hot or red and she has no instability-varus valgus stress test and Emiliano's are negative. - Last Documented On 05/25/2017 4:12PM ; [facility] She can flex her knee more than 110?. In the limitation is caused by anterior knee pain - Last Documented On 05/25/2017 4:12PM ; [facility] X-rays show no evidence of fracture patella is tracking normally in the trochlea - Last Documented On 05/25/2017 4:12PM ; [facility] Impression knee contusion likely intra-patellar bone bruise. - Last Documented On 05/25/2017 4:12PM ; [facility] I don't think that obtaining further studies is necessary at this time. - Last Documented On 05/25/2017 4:12PM ; [facility] reCheck in 10 days - Last Documented On 05/25/2017 4:12PM ; [facility] Instructions Includes: Instructions from this encounter Instructions to patient Instructions for patient Last Documented On 7 1:14PM ; [facility] Medical Equipment - Implanted Devices Includes: Current Devices No Medical Equipment Recorded Medications Includes: Medications discussed during this encounter and other current Medications Discontinued / Stopped on this date on 07/26/2012 Lipitor 10 MG OR TABS Provider: Diagnosis: Last Documented On 7 1:12PM By Valentin Fonseca ; [facility], [facility] Relafen 500 mg OR TABS Provider: JANNET LEY PA-C Diagnosis: Last Documented On 7 1:12PM By Valentin Fonseca ; [facility], [facility] Current Medications (continue as prescribed) Prolia 60 MG/ML Subcutaneous Solution Prefilled Syring e 10/03/2022 Provider: Diagnosis: Last Documented On 3 10:07AM By Jasmin Pedro ; [facility], [facility] Atorvastatin Calcium 20 MG Oral Tablet 09/09/2022 Pr ovider: Diagnosis: Last Documented On 3 10:07AM By Jasmin Pedro ; [facility], [facility] Levothyroxine Sodium 88 MCG Oral Tablet 07/26/2022 P rovider: Diagnosis: Last Documented On 3 10:11AM By Claudia Campbell ; [facility], [facility] Synthroid 50 MCG OR TABS 07/26/2012 Provider: Diagnosis: Last Documented On 3 2:38PM By Hilario 4 User ; [facility], [facility] Past Medications on file Mobic 15MG Oral Tablet 06/02/2017 - 06/17/2017 Provide r: Oniel Crespo MD Diagnosis: 1 tab every 12 hours Last Documented On 7 8:51AM By Chalo Pollock ; [facility], [facility] Voltaren 1% TD GEL 07/26/2012 - 08/25/2012 Provider: CHARLEEN LEY PA-C Diagnosis: ab Last Documented On 3 3:35PM By Hilario 3 User ; [facility], [facility] Medications Administered Includes: Administered Medications from this encounter No Administered Medications Recorded Vital Signs Includes: Vital Signs from this encounter Vital Name 05/23/2017 01:17P Blood Pressure Sitting (mmHg) 120/72 Pulse Rate-Sitting (bpm) 74 Height (in) 65 Weight (lb) 147 Body Mass Index (kg/m2) 24.5 Body Surface Area (m2) 1.7 Note: CA Last Documented: On 05/23/2017 1:17PM ; [facility], [facility] Results Includes: Results discussed during this encounter No Results Recorded For Specified Dates History of Present Illness Includes: History of Present Illness from this encounter HPI Georgia Paris is a 62 year old female. - Medication list reviewed with patient. - Sharp pain Symptoms. Previous Treatment brace, xray. Please rate pain on scale of 1 - 10: 2 , then 7. Medications used for this condition: NSAID. Social History Description Last Updated Caffeine use 05/23/2017 Last Documented On 7 4:12PM ; [facility], [facility] Not a current smoker 05/23/2017 Last Documented On 7 4:12PM ; [facility], [facility] Not exercising regularly 05/23/2017 Last Documented On 7 4:12PM ; [facility], [facility] Not using alcohol 05/23/2017 Last Documented On 7 4:12PM ; [facility], [facility] No tobacco use 07/26/2012 Last Documented On 7 1:13PM ; [facility], [facility] Smoking status : Never smoked/ Recode: 4 07/26/2012 Last Documented On 7 1:13PM ; [facility], [facility] Procedures and Surgical History Includes: Procedures from this encounter Procedures Code Diagnosis Performing Provider Service L ocation Service Date history of brace Last Documented On 7 1:14PM ; [facility], [facility] Clinical summary provided to patient Last Documented On 7 1:14PM ; [facility], [facility] history of an X-ray was performed [id number] Last Documented On 7 1:14PM ; [facility], [facility] Surgical History Last Updated History of appendectomy 05/23/2017 Last Documented On 7 4:12PM ; [facility], [facility] Medical History Includes: Medical History addressed during this encounter Description Last Updated Thyroid disease 05/23/2017 Last Documented On 7 4:12PM ; [facility], [facility] Family History Includes: Family History addressed during this encounter Description Last Updated Family history of heart disease 05/23/20 17 Last Documented On 7 4:12PM ; [facility], [facility] Review of Systems Includes: Review of Systems from this encounter Systemic: Feeling tired (fatigue). Eyes: Vision problems glasses. Musculoskeletal: No localized joint pain. Mental Status Includes: Mental Status from this encounter No Mental Status Recorded Functional Status Includes: Functional Status from this encounter No Functional Status Recorded Physical Exam Includes: Physical Exam from this encounter Allergies Includes: Active Allergies No Known Allergies Encounters Encounter Provider Location Date Check-In Time Check-Out Time Diagnosis Physician Specified Oniel Crespo MD [facility] 05/23/20 17 12:38PM 1:40PM Insurance Includes: Active Insurance Policies Plan Name Member ID Group # Subscriber Relationship Effect sarah Dates 1 - Medicare Part B [facility] [id number] [place] Ring Self [facility] [id number] [place] Ring Self Clinical Notes Includes: Clinical Notes from this encounter No Clinical Notes Recorded
--- OUTSIDE RECORDS SUMMARY | 2024-04-15 08:13 | XMS_ITS | Clinical Summary ---
Author Organization [facility] Address [address] [place] [address] Phone Care Team Providers Care Internet Webmaster Name Role Phone Zak JANG, Oniel Robles Unavailable [phone] Mae Suzanne TROY Unavailable Unavailable Reason for Visit and Chief Complaint referred by James Singh - The Chief Complaint is: Toe pain Problems Includes: Problems addressed during this encounter and other active Problems All Visits Onset Date Resolved Date Provider Condition S tatus Left Ankle Joint Pain 09/29/2022 Romaine Villegas Active Last Documented On 3 9:54AM ; [facility], [facility] Joint Pain, Localized in the Knee 05/23/2017 Bre Crsepo MD Active Last Documented On 7 1:08PM ; [facility] Joint Pain in the Toes 07/26/2012 Oniel garland MD Active Last Documented On 3 2:38PM ; [facility] Plan of Treatment Patient will follow up with Dr Crespo 09/04/12 at 330pm / gb - Last Documented On 09/03/2012 3:01PM ; [facility], [facility] Assessments Includes: Assessments from this encounter No Assessments Recorded Medical Equipment - Implanted Devices Includes: Current Devices No Medical Equipment Recorded Medications Includes: Medications discussed during this encounter and other current Medications Current Medications (continue as prescribed) Prolia 60 MG/ML Subcutaneous Solution Prefilled Syring e 10/03/2022 Provider: Diagnosis: Last Documented On 3 10:07AM By Jasmin Pedro ; [facility], [facility] Atorvastatin Calcium 20 MG Oral Tablet 09/09/2022 Pr ovider: Diagnosis: Last Documented On 3 10:07AM By Jasmin Pedro ; [facility] Levothyroxine Sodium 88 MCG Oral Tablet 07/26/2022 P bradley: Diagnosis: Last Documented On 3 10:11AM By Claudia Campbell ; [facility] Synthroid 50 MCG OR TABS 07/26/2012 Provider: Diagnosis: Last Documented On 3 2:38PM By Hilario Naranjo User ; [facility] Medications Administered Includes: Administered Medications from this encounter No Administered Medications Recorded Vital Signs Includes: Vital Signs from this encounter Vital Name 08/09/2012 12:00A Blood Pressure Sitting (mmHg) 139/66 Pulse Rate-Sitting (bpm) 77 Height (in) 65 Weight (lb) 148 Body Mass Index (kg/m2) 24.6 Body Surface Area (m2) 1.7 Last Documented: On 08/09/2012 3:15PM ; [facility] Results Includes: Results discussed during this encounter No Results Recorded For Specified Dates History of Present Illness Includes: History of Present Illness from this encounter ASAF Paris is a 57 year old female. - Medication list reviewed. Social History Description Last Updated No tobacco use 08/09/2012 Last Documented On 3 3:01PM ; [facility] Smoking status : Never smoked/ Recode: 4 08/09/2012 Last Documented On 3 3:01PM ; [facility] Procedures and Surgical History Includes: Procedures from this encounter Procedures Code Diagnosis Performing Provider Service L ocation Service Date Clinical summary provided to patient Last Documented On 3 3:14PM ; [facility] Medical History Includes: Medical History addressed during [...] Encounters Encounter Provider Location Date Check-In Time Check- Out Time Diagnosis Follow Up Oniel Crespo MD [facility] 3 2:59PM 3:47PM Insurance Includes: Active Insurance Policies Plan Name Member ID Group # Subscriber Relationship Effect sarah Dates 1 - Medicare Part B [facility] [id number] [place] Paris Self [facility] [id number] [place] Rico Clinical Notes Includes: Clinical Notes from this encounter No Clinical Notes Recorded
--- OUTSIDE RECORDS SUMMARY | 2024-04-15 08:13 | XMS_ITS | Clinical Summary ---
Author Organization [facility] , [facility] Address [address] [address] Phone Care Team Providers Care Enrollment Services Vice President Name Role Phone Zak JANG, Oniel Robles Unavailable [phone] Suzanne Mae APRN Unavailable Unavailable Reason for Visit and Chief Complaint The Chief Complaint is: Left knee pain Problems Includes: Problems addressed during this encounter and other active Problems All Visits Onset Date Resolved Date Provider Condition S tatus Left Ankle Joint Pain 09/29/2022 Romaine Villegas Active Last Documented On 3 9:54AM ; [facility] Joint Pain, Localized in the Knee 05/23/2017 Bre Crespo MD Active Last Documented On 7 1:08PM ; [facility] Joint Pain in the Toes 07/26/2012 Oniel garland MD Active Last Documented On 3 2:38PM ; [facility], [facility] Plan of Treatment No Plan of Treatment Recorded Assessments Includes: Assessments from this encounter Findings Georgia Paris social reassessment of her knee. She is minimally if at all better. She still has anterior knee pain over the distal pole of patella and the patellar tendon. Additionally she has occasional aching on the lateral aspect of the knee but no catching, popping, locking. That is, she has no mechanical symptoms - Last Documented On 06/06/2017 8:37AM ; [facility], [facility] X-rays showed no evidence of fracture.definitive treatment therefore is going to be TIME. - Last Documented On 06/06/2017 8:37AM ; [facility], [facility] steroid injection was offered anticipating she may have some intra-articular inflammation secondary to the contusion. she declined an injection. - Last Documented On 06/06/2017 8:37AM ; [facility] She will therefore be managed with anti-inflammatory medication and we will see how she responds. - Last Documented On 06/06/2017 8:37AM ; [facility], [facility] Recheck in 3 week - Last Documented On 06/06/2017 8:37AM ; [facility], [facility] Medical Equipment - Implanted Devices Includes: Current Devices No Medical Equipment Recorded Medications Includes: Medications discussed during this encounter and other current Medications New / Renewed during this visit Oniel Crespo MD on 06/02/2017 Mobic 15MG Oral Tablet Provider: Oniel Crespo MD 15 day supply: 30 tablet, 0 refills Diagnosis: 1 tab every 12 hours Last Documented On 7 8:51AM By Chalo Pollock ; [facility], [facility] Current Medications (continue as prescribed) Prolia 60 MG/ML Subcutaneous Solution Prefilled Syring e 10/03/2022 Provider: Diagnosis: Last Documented On 3 10:07AM By Jasmin Pedro ; [facility] Atorvastatin Calcium 20 MG Oral Tablet 09/09/2022 Pr ovider: Diagnosis: Last Documented On 3 10:07AM By Jasmin Pedro ; [facility] Levothyroxine Sodium 88 MCG Oral Tablet 07/26/2022 P rovider: Diagnosis: Last Documented On 3 10:11AM By Claudia Campbell ; [facility] Synthroid 50 MCG OR TABS 07/26/2012 Provider: Diagnosis: Last Documented On 3 2:38PM By Hilario Naranjo User ; [facility], [facility] Past Medications on file Voltaren 1% TD GEL 07/26/2012 - 08/25/2012 Provider: CHARLEEN LEY PA-C Diagnosis: ab Last Documented On 3 3:35PM By Hilario Weiner User ; [facility], [facility] Medications Administered Includes: Administered Medications from this encounter No Administered Medications Recorded Vital Signs Includes: Vital Signs from this encounter Vital Name 06/02/2017 08:18A Blood Pressure Sitting (mmHg) 119/80 Pulse Rate-Sitting (bpm) 74 Height (in) 65 Weight (lb) 147 Body Mass Index (kg/m2) 24.5 Body Surface Area (m2) 1.7 Note: [facility] Last Documented: On 06/02/2017 8:22AM ; [facility] Results Includes: Results discussed during this [...] Caffeine use 05/23/2017 Last Documented On 7 8:18AM ; [facility] Not a current smoker 05/23/2017 Last Documented On 7 8:18AM ; [facility] Not exercising regularly 05/23/2017 Last Documented On 7 8:18AM ; [facility] Not using alcohol 05/23/2017 Last Documented On 7 8:18AM ; [facility], [facility] No tobacco use 07/26/2012 Last Documented On 7 8:18AM ; [facility] Smoking status : Never smoked/ Recode: 4 07/26/2012 Last Documented On 7 8:18AM ; [facility] Procedures and Surgical History Includes: Procedures from this encounter Procedures Code Diagnosis Performing Provider Service L ocation Service Date history of brace Last Documented On 7 8:18AM ; [facility] Clinical summary provided to patient Last Documented On 7 8:18AM ; [facility] history of an X-ray was performed [id number] Last Documented On 7 8:18AM ; [facility] Surgical History Last Updated History of appendectomy 06/02/2017 Last Documented On 7 8:37AM ; [facility] Medical History Includes: Medical History addressed during this encounter Description Last Updated Thyroid disease 06/02/2017 Last Documented On 7 8:37AM ; [facility] Family History Includes: Family History addressed during this encounter Description Last Updated Family history of heart disease 06/02/20 17 Last Documented On 7 8:37AM ; [facility], [facility] Review of Systems Includes: Review of [...] Time Diagnosis Follow Up Oniel Crespo MD [facility] 7 8:15AM 8:52AM Insurance Includes: Active Insurance Policies Plan Name Member ID Group # Subscriber Relationship Effect sarah Dates 1 - Medicare Part B [facility] [id number] [place] Ring Self 2 - [facility] Medicare Supplement Insurance [id number] [place] Ring Self Clinical Notes Includes: Clinical Notes from this encounter No Clinical Notes Recorded
--- OUTSIDE RECORDS SUMMARY | 2024-04-15 08:13 | XMS_ITS | Clinical Summary ---
Author Organization [facility] , [facility] Address [address] [place] [address] Phone Care Team Providers Care Assembly Room Supervisor Name Role Phone Zak JANG, Oniel Robles Unavailable [phone] Suaznne Mae APRN Unavailable Unavailable Reason for Visit and Chief Complaint The Chief Complaint is: L distal fibula fx Problems Includes: Problems addressed during this encounter and other active Problems All Visits Onset Date Resolved Date Provider Condition S tatus Left Ankle Joint Pain 09/29/2022 Romaine Villegas Active Last Documented On 3 9:54AM ; [facility] Joint Pain, Localized in the Knee 05/23/2017 Bre Crespo MD Active Last Documented On 7 1:08PM ; [facility] Joint Pain in the Toes 07/26/2012 Oniel garland MD Active Last Documented On 3 2:38PM ; [facility] Plan of Treatment Fall Risk Assessment: [...] with the patient. - Last Documented On 10/03/2022 10:37AM ; [facility], [facility] She will continue wearing the left ankle brace, and Dr. Galindo discussed 2 months of limited exercise to allow for optimal interval bone healing. We discussed using a stationary bike and walking on a treadmill when she reaches the 2 month point in time, so as to gradually return to exercise. She is scheduled for subsequent Prolia injections and repeat DXA scan through her PCP - Last Documented On 10/03/2022 10:37AM ; [facility], [facility] Instructions to patient Lose weight Last Documented On 10:01AM ; [facility], [facility] Assessments Includes: Assessments from this encounter Findings 67 year old female presents for osteoporosis evaluation. DXA scan was performed as well as osteoporosis labs. She was referred to us by Dr. Galindo. She has a history of a stress fracture of the right ankle, 30 years ago. She was recently evaluated for left ankle pain along the lateral aspect of the ankle and was further evaluated with MRI findings of a non-displaced fracture of the distal fibula. She has recently started Prolia therapy. She also take Calcium and Vitamin D supplementation daily - Last Documented On 10/03/2022 10:37AM ; [facility] She had her recent DXA scan at [facility], with findings of osteoporosis. That report was not available for my review today. - Last Documented On 10/03/2022 10:37AM ; [facility] Left distal fibula fracture - Last Documented On 10/03/2022 10:37AM ; [facility], [facility] discussed with Ms. Paris that she does [...] the next month. - Last Documented On 10/03/2022 10:37AM ; [facility] Instructions Includes: Instructions from this encounter Instructions to patient Lose weight Last Documented On 10:01AM ; [facility], [facility] Medical Equipment - Implanted Devices Includes: Current Devices No Medical Equipment Recorded Medications Includes: Medications discussed during this encounter and other current Medications Current Medications (continue as prescribed) Prolia 60 MG/ML Subcutaneous Solution Prefilled Syring e 10/03/2022 Provider: Diagnosis: Last Documented On 3 10:07AM By Jasmin Pedro ; [facility], [facility] Atorvastatin Calcium 20 MG Oral Tablet 09/09/2022 Pr ovider: Diagnosis: Last Documented On 3 10:07AM By Jasmin Pedro ; [facility], [facility] Levothyroxine Sodium 88 MCG Oral Tablet 07/26/2022 P rovider: Diagnosis: Last Documented On 3 10:11AM By Claudia Campbell ; [facility], [facility] Synthroid 50 MCG OR TABS 07/26/2012 Provider: Diagnosis: Last Documented On 3 2:38PM By Hilario 4 User ; [facility], [facility] Past Medications on file Mobic 15MG Oral Tablet 06/02/2017 - 06/17/2017 Provide r: Oniel Crespo MD Diagnosis: 1 tab every 12 hours Last Documented On 7 8:51AM By Chalo Pollock ; [facility], [facility] Voltaren 1% TD GEL 07/26/2012 - 08/25/2012 Provider: CHARLEEN LEY PA-C Diagnosis: ab Last Documented On 3 3:35PM By Hilario 3 User ; [facility], [facility] Medications Administered Includes: Administered Medications from this encounter No Administered Medications Recorded Vital Signs Includes: Vital Signs from this encounter Vital Name 10/03/2022 10:00A Height (in) 65 Weight (lb) 161 Body Mass Index 26.8 Body Surface Area 1.8 Note: ck Last Documented: On 10/03/2022 10:01A M ; [facility], [facility] Results Includes: Results discussed during this encounter No Results Recorded For Specified Dates History of Present Illness Includes: History of Present Illness from this encounter ASAF Paris is a 67 year old female. - Symptoms throbbing. - Allergy list reviewed - Problem list reviewed - Medication list reviewed - Pain is occasional (25% of the time) - Patient pain level from 1-10: 2 - Yes, previous treatment. ES 67 year old female presents for osteoporosis evaluation. DXA scan was performed as well as osteoporosis labs. She was referred to us by Dr. Galindo. She has a history of a stress fracture of the right ankle, 30 years ago. She was recently evaluated for left ankle pain along the lateral aspect of the ankle and was further evaluated with MRI findings of a non-displaced fracture of the distal fibula. She has recently started Prolia therapy. She also take Calcium and Vitamin D supplementation daily She had her recent DXA scan at [facility], with findings of osteoporosis. That report was not available for my review today. Social History Description Last Updated No recent change in diet 10/03/2022 Last Documented On 3 10:37AM ; [facility], [facility] Not a current smoker. 10/03/2022 Last Documented On 3 10:37AM ; [facility], [facility] Not using drugs 10/03/2022 Last Documented On 3 10:37AM ; [facility], [facility] Tobacco non-user 09/29/2022 Last Documented On 3 9:52AM ; [facility], [facility] Caffeine use 05/23/2017 Last Documented On 3 9:52AM ; [facility], [facility] Not a current smoker 05/23/2017 Last Documented On 3 9:52AM ; [facility], [facility] Not exercising regularly 05/23/2017 Last Documented On 3 9:52AM ; [facility], [facility] Not using alcohol 05/23/2017 Last Documented On 3 9:52AM ; [facility], [facility] No tobacco use 07/26/2012 Last Documented On 3 9:52AM ; [facility], [facility] Smoking status : Never smoked/ Recode: 4 07/26/2012 Last Documented On 3 9:52AM ; [facility], [facility] Procedures and Surgical History Includes: Procedures from this encounter Procedures Code Diagnosis Performing Provider Service L ocation Service Date use of tobacco assessment performed 1000F Last Documented On 3 10:01AM ; [facility], [facility] patient screened for future fall risk: documentation of any fall with injury in past year 1100F Last Documented On 3 10:01AM ; [facility], [facility] Surgical History Last Updated History of appendectomy 06/02/2017 Last Documented On 3 9:52AM ; [facility], [facility] Medical History Includes: Medical History addressed during this encounter Description Last Updated Thyroid disease 06/02/2017 Last Documented On 3 9:52AM ; [facility], [facility] Family History Includes: Family History addressed during this encounter Description Last Updated Family history of heart disease 06/02/20 17 Last Documented On 3 9:52AM ; [facility], [facility] Review of Systems Includes: Review of Systems [...] Location Date Check-In Time Check-Out Time Diagnosis IN HOUSE REFERRAL Veronica Leon PA-C [facility] 10/04/19 23 9:44AM 10:31AM Insurance Includes: Active Insurance Policies Plan Name Member ID Group # Subscriber Relationship Effect sarah Dates 1 - Medicare Part B [facility] [id number] Georgia Paris Self 2 - [facility] Medicare Supplement Insurance [id number] Georgia Paris Self Clinical Notes Includes: Clinical Notes from this encounter * Progress note Date Encounter Last Documented by 10/03/2022 IN HOUSE REFERRAL Last documente d on 10/03/2022; 10:37 AM, Veronica Leon PA-C; [facility], [facility] Active Problems & Conditions - Joint Pain in the Toes - Joint Pain, Localized in the Knee - Left Ankle Joint Pain Chief Complaint The Chief Complaint is: L distal fibula fx. History of Present Illness Georgia Paris is a 67 year old female. - Symptoms throbbing. - Allergy list reviewed - Problem list reviewed - Medication list reviewed - Pain is occasional (25% of the time) - Patient pain level from 1-10: 2 - Yes, previous treatment. ES 67 year old female presents for osteoporosis evaluation. DXA scan was performed as well as osteoporosis labs. She was referred to us by Dr. Galindo. She has a history of a stress fracture of the right ankle, 30 years ago. She was recently evaluated for left ankle pain along the lateral aspect of the ankle and was further evaluated with MRI findings of a non-displaced fracture of the distal fibula. She has recently started Prolia therapy. She also take Calcium and Vitamin D supplementation daily She had her recent DXA scan at [facility], with findings of osteoporosis. That report was not available for my review today. Current Medication - Atorvastatin Calcium 20 MG Oral Tablet take as directed 90 days, 0 refills - Levothyroxine Sodium 88 MCG Oral Tablet 90 days, 0 refills - Prolia 60 MG/ML Subcutaneous Solution Prefilled Syringe use as directed 0 days, 0 refills - Synthroid 50 MCG Tablet 0 days, 0 refills Past Medical/Surgical History Reported: Medical: Thyroid disease. Surgical: - Appendectomy Social History Not a current smoker. Current diet: No recent change in diet. Caffeine use: Caffeine use. Tobacco use: No tobacco use and not a current smoker. Tobacco non-user. Smoking status: Never smoker. Alcohol: Not using alcohol. Drug Use: Not using drugs. Habits: Not exercising regularly. Allergies - No Known Allergies Family History Heart disease Physical Findings - Vitals taken 10/03/2022 10:00 am ck Height 65 in Weight 161 lbs Body Mass Index 26.8 kg/m2 Body Surface Area 1.8 m2 Standard Measurements: - Patient was overweight. Assessment 67 year old female presents for osteoporosis evaluation. DXA scan was performed as well as osteoporosis labs. She was referred to us by Dr. Galindo. She has a history of a stress fracture of the right ankle, 30 years ago. She was recently evaluated for left ankle pain along the lateral aspect of the ankle and was further evaluated with MRI findings of a non-displaced fracture of the distal fibula. She has recently started Prolia therapy. She also take Calcium and Vitamin D supplementation daily She had her recent DXA scan at [facility], with findings of osteoporosis. That report was not available for my review today. Plan Fall Risk Assessment: This patient has been [...] therapy has been discussed with the patient. She will continue wearing the left ankle brace, and Dr. Galindo discussed 2 months of limited exercise to allow for optimal interval bone healing. We discussed using a stationary bike and walking on a treadmill when she reaches the 2 month point in time, so as to gradually return to exercise. She is scheduled for subsequent Prolia injections and repeat DXA scan through her PCP Counseling/Education - Lose weight Notes Electronically signed by Veronica Leon PA-C Practice Management Use of tobacco assessment performed and patient screened for future fall risk documentation of any fall with injury in past year. Care Team - Suzanne Mae APRN Health Reminders - Assess BMI satisfied 10/03/2022. - Assess Tobacco Use satisfied 10/03/2022. User Defined 5 Left distal fibula fracture [...]
[2024-04-15] MEDS: DENOSUMAB 60 MG/ML SYRINGE SUBCUT (08:18)
[2024-04-15 08:20] VITALS: BP 117/75; PULSE 70; RESP 18; TEMP 36.8; O2SAT 99
== END 2024-04-15 08:20 | disposition home or self-care (01) ==
LOC: INF 08:10
PROVIDERS: PCP Nurse Practitioner Family; Visit Provider Nurse Practitioner Family
DX: M81.0 Age-related osteoporosis without current pathological fracture (principal)
CPT/HCPCS: 96372; J0897

== ENCOUNTER 2024-05-07 12:05 | Outpatient (CLI) | payer MEDICARE, OTHER, SELFPAY ==
--- OUTSIDE RECORDS SUMMARY | 2024-05-07 12:08 | XMS_ITS | Clinical Summary ---
Author Organization [facility] , [facility] Address [address] [place] [address] Phone Care Team Providers Care Aircraft Maintenance Engineer Name Role Phone Zak JANG, Oniel Robles Unavailable [phone] Suzanne Mae APRN Unavailable Unavailable Reason for Visit and Chief Complaint The Chief Complaint is: left ankle pain Problems Includes: Problems addressed during this encounter and other active Problems Current Visit Onset Date Resolved Date Provider Sonyao n Status Left Ankle Joint Pain 09/29/2022 Romaine Villegas Active Last Documented On 3 9:54AM ; [facility], [facility] Past Visits Onset Date Resolved Date Provider Condition Status Joint Pain, Localized in the Knee 05/23/2017 Oniel Crespo MD Active Last Documented On 7 1:08PM ; [facility], [facility] Joint Pain in the Toes 07/26/2012 Oniel garland MD Active Last Documented On 3 2:38PM ; [facility], [facility] Plan of Treatment Fall Risk Assessment: [...] - Last Documented On 09/29/2022 1:22PM ; [facility], [facility] Referrals To Diagnosis Consult with Orthopedic Veronica Leon PA-C Note: IHR per ES L distal fi bula fx4.24 @ 10am//sv Last Documented On 3 1:22PM ; [facility], [facility] Instructions to patient Lose weight Last Documented On 3 10:12AM ; [facility], [facility] Assessments Includes: Assessments from this encounter Findings Left distal fibula fracture - Last Documented On 09/29/2022 1:22PM ; [facility], [facility] discussed with Ms. Paris that she [...] - Last Documented On 09/29/2022 1:22PM ; [facility], [facility] Instructions Includes: Instructions from this encounter Instructions to patient Lose weight Last Documented On 3 10:12AM ; [facility], [facility] Medical Equipment - Implanted Devices Includes: Current Devices No Medical Equipment Recorded Medications Includes: Medications discussed during this encounter and other current Medications Discontinued / Stopped on this date on 09/09/2022 Atorvastatin Calcium 20 MG Oral Tablet Pr ovider: Diagnosis: Last Documented On 3 10:11AM By Claudia Campbell ; [facility], [facility] Current Medications (continue as prescribed) Prolia 60 MG/ML Subcutaneous Solution Prefilled Syring e 10/03/2022 Provider: Diagnosis: Last Documented On 3 10:07AM By Jasmin Brown [facility], [facility] Atorvastatin Calcium 20 MG Oral Tablet 09/09/2022 Pr ovider: Diagnosis: Last Documented On 3 10:07AM By Jasmin Brown [facility], [facility] Levothyroxine Sodium 88 MCG Oral Tablet 07/26/2022 Ruby huerta: Diagnosis: Last Documented On 3 10:11AM By Claudia Brown [facility], [facility] Synthroid 50 MCG OR TABS 07/26/2012 Provider: Diagnosis: Last Documented On 3 2:38PM By Hilario Herrera ; [facility] Past Medications on file Mobic 15MG Oral Tablet 06/02/2017 - 06/17/2017 Provide r: Oniel Crespo MD Diagnosis: 1 tab every 12 hours Last Documented On 7 8:51AM By Chalo Pollock ; [facility], [facility] Voltaren 1% TD GEL 07/26/2012 - 08/25/2012 Provider: CHARLEEN LEY PA-C Diagnosis: ab Last Documented On 3 3:35PM By Hilario 3 User ; [facility], [facility] Medications Administered Includes: Administered Medications from this encounter No Administered Medications Recorded Vital Signs Includes: Vital Signs from this encounter Vital Name 09/29/2022 10:12A Height (in) 65 Weight (lb) 161 Body Mass Index 26.8 Body Surface Area 1.8 Note: ab Last Documented: On 09/29/2022 10:12A M ; [facility], [facility] Results Includes: Results discussed during this [...] Documented On 3 1:22PM ; [facility], [facility] Smoking Status Unknown Procedures and Surgical History Includes: Procedures from this encounter Procedures Code Diagnosis Performing Provider Service L ocation Service Date use of tobacco assessment performed 1000F Last Documented On 3 10:12AM ; [facility] patient screened for future fall risk: documentation of any fall with injury in past year 1100F Last Documented On 3 10:12AM ; [facility] Medical History Includes: Medical History addressed during [...] Next Available Non-Specified Physician Romaine Galindo MD [facility] 09/30/19 23 9:52AM 10:27AM Insurance Includes: Active Insurance Policies Plan Name Member ID Group # Subscriber Relationship Effect sarah Dates 1 - Medicare Part B [facility] [id number] [place] Paris Self 2 - [facility] [id number] Georgia Paris Self Clinical Notes Includes: Clinical Notes from this encounter * Progress note Date Encounter Last Documented by 09/29/2022 Next Available Non-S pecified Physician Last documented on 09/29/2022; 1:22 PM, Romaine Galindo MD; [facility] Active Problems & Conditions - Joint [...] Care Team - AMALIA HICKS MD - [employer] User Defined 5 Left distal fibula fracture [...]
--- OUTSIDE RECORDS SUMMARY | 2024-05-07 12:08 | XMS_ITS | Clinical Summary ---
Author Organization [facility] Address [address] [place] [address] Phone Care Team Providers Care Position Description Manager Name Role Phone Zak JANG, Oniel Robles Unavailable [phone] Suzanne Mae APRN Unavailable Unavailable Reason for Visit and Chief Complaint The Chief Complaint is: Left knee pain Problems Includes: Problems addressed during this encounter and other active Problems All Visits Onset Date Resolved Date Provider Condition S tatus Left Ankle Joint Pain 09/29/2022 Romaine Villegas Active Last Documented On 3 9:54AM ; [facility] Joint Pain, Localized in the Knee 05/23/2017 Bre Crespo MD Active Last Documented On 7 1:08PM ; [facility] Joint Pain in the Toes 07/26/2012 Oniel garland MD Active Last Documented On 3 2:38PM ; [facility] Plan of Treatment No Plan of Treatment [...] - Last Documented On 06/06/2017 8:37AM ; [facility] X-rays showed no evidence of fracture.definitive treatment therefore is going to be TIME. - Last Documented On 06/06/2017 8:37AM ; [facility] steroid injection was offered anticipating she may have some intra-articular inflammation secondary to the contusion. she declined an injection. - Last Documented On 06/06/2017 8:37AM ; [facility] She will therefore be managed with anti-inflammatory medication and we will see how she responds. - Last Documented On 06/06/2017 8:37AM ; [facility] Recheck in 3 week - Last Documented On 06/06/2017 8:37AM ; [facility] Medical Equipment - Implanted Devices Includes: Current [...] On 7 8:51AM By Chalo Pollock ; [facility] Current Medications (continue as prescribed) Prolia 60 MG/ML Subcutaneous Solution Prefilled Syring e 10/03/2022 Provider: Diagnosis: Last Documented On 3 10:07AM By Jasmin Pedro ; [facility] Atorvastatin Calcium 20 MG Oral Tablet 09/09/2022 Pr ovider: Diagnosis: Last Documented On 3 10:07AM By Jasmin Pedro ; [facility] Levothyroxine Sodium 88 MCG Oral Tablet 07/26/2022 P rovider: Diagnosis: Last Documented On 3 10:11AM By Claudia Campbell ; [facility] Synthroid 50 MCG OR TABS 07/26/2012 Provider: Diagnosis: Last Documented On 3 2:38PM By Hilario Naranjo User ; [facility] Past Medications on file Voltaren 1% TD GEL 07/26/2012 - 08/25/2012 Provider: CHARLEEN LEY PA-C Diagnosis: ab Last Documented On 3 3:35PM By Hilario Weiner User ; [facility] Medications Administered Includes: Administered Medications from this encounter No Administered Medications Recorded Vital Signs Includes: Vital Signs from this encounter Vital Name 06/02/2017 08:18A Blood Pressure Sitting (mmHg) 119/80 Pulse Rate-Sitting (bpm) 74 Height (in) 65 Weight (lb) 147 Body Mass Index (kg/m2) 24.5 Body Surface Area (m2) 1.7 Note: [facility] Last Documented: On 06/02/2017 8:22AM ; [facility] Results Includes: Results discussed during this encounter [...] Last Documented On 7 8:18AM ; [facility] Not a current smoker 05/23/2017 Last Documented On 7 8:18AM ; [facility] Not exercising regularly 05/23/2017 Last Documented On 7 8:18AM ; [facility] Not using alcohol 05/23/2017 Last Documented On 7 8:18AM ; [facility] No tobacco use 07/26/2012 Last Documented On 7 8:18AM ; [facility] Smoking status : Never smoked/ Recode: 4 07/26/2012 Last Documented On 7 8:18AM ; [facility] Procedures and Surgical History Includes: Procedures from this encounter Procedures Code Diagnosis Performing Provider Service L ocation Service Date history of brace Last Documented On 7 8:18AM ; [facility] Clinical summary provided to patient Last Documented On 7 8:18AM ; [facility] history of an X-ray was performed [id number] Last Documented On 7 8:18AM ; [facility] Surgical History Last Updated History of appendectomy 06/02/2017 Last Documented On 7 8:37AM ; [facility] Medical History Includes: Medical History addressed during this encounter Description Last Updated Thyroid disease 06/02/2017 Last Documented On 7 8:37AM ; [facility] Family History Includes: Family History addressed during this encounter Description Last Updated Family history of heart disease 06/02/20 17 Last Documented On 7 8:37AM ; [facility] Review of Systems Includes: Review of Systems [...] Time Diagnosis Follow Up Oniel Crespo MD [facility] 7 8:15AM 8:52AM Insurance Includes: Active Insurance Policies Plan Name Member ID Group # Subscriber Relationship Effect sarah Dates 1 - Medicare Part B [facility] [id number] [place] Ring Self 2 - [facility] Medicare Supplement Insurance [id number] [place] Ring Self Clinical Notes Includes: Clinical Notes from this encounter No Clinical Notes Recorded
--- OUTSIDE RECORDS SUMMARY | 2024-05-07 12:08 | XMS_ITS | Clinical Summary ---
Author Organization [facility] , [facility] Address [address] [address] Phone Care Team Providers Care Tax Economist Name Role Phone Zak JANG, Oniel Robles Unavailable [phone] Suzanne Mae APRN Unavailable Unavailable Reason for Visit and Chief Complaint The Chief Complaint is: L distal fibula fx Problems Includes: Problems addressed during this encounter and other active Problems All Visits Onset Date Resolved Date Provider Condition S tatus Left Ankle Joint Pain 09/29/2022 Romaine Villegas Active Last Documented On 3 9:54AM ; [facility] Joint Pain, Localized in the Knee 05/23/2017 Bre Crespo MD Active Last Documented On 7 1:08PM ; [facility] Joint Pain in the Toes 07/26/2012 Oniel garland MD Active Last Documented On 3 2:38PM ; [facility] Plan of Treatment Fall Risk Assessment: [...] - Last Documented On 10/03/2022 10:37AM ; [facility], [facility] She will continue wearing the left ankle [...] Last Documented On 10/03/2022 10:37AM ; [facility], [facility] Instructions to patient Lose weight Last Documented On 10:01AM ; [facility], [facility] Assessments Includes: Assessments from this encounter Findings [...] - Last Documented On 10/03/2022 10:37AM ; [facility] She had her recent DXA scan at [facility], with findings of osteoporosis. That report was not available for my review today. - Last Documented On 10/03/2022 10:37AM ; [facility] Left distal fibula fracture - Last Documented On 10/03/2022 10:37AM ; [facility], [facility] discussed with Ms. Paris that she does [...] - Last Documented On 10/03/2022 10:37AM ; [facility] Instructions Includes: Instructions from this encounter Instructions to patient Lose weight Last Documented On 10:01AM ; [facility], [facility] Medical Equipment - Implanted Devices Includes: Current Devices No Medical Equipment Recorded Medications Includes: Medications discussed during this encounter and other current Medications Current Medications (continue as prescribed) Prolia 60 MG/ML Subcutaneous Solution Prefilled Syring e 10/03/2022 Provider: Diagnosis: Last Documented On 3 10:07AM By Jasmin Pedro ; [facility], [facility] Atorvastatin Calcium 20 MG Oral Tablet 09/09/2022 Pr ovider: Diagnosis: Last Documented On 3 10:07AM By Jasmin Pedro ; [facility], [facility] Levothyroxine Sodium 88 MCG Oral Tablet 07/26/2022 P rovider: Diagnosis: Last Documented On 3 10:11AM By Claudia Campbell ; [facility], [facility] Synthroid 50 MCG OR TABS 07/26/2012 Provider: Diagnosis: Last Documented On 3 2:38PM By Hilario 4 User ; [facility], [facility] Past Medications on file Mobic 15MG Oral Tablet 06/02/2017 - 06/17/2017 Provide r: Oniel Crespo MD Diagnosis: 1 tab every 12 hours Last Documented On 7 8:51AM By Chalo Pollock ; [facility], [facility] Voltaren 1% TD GEL 07/26/2012 - 08/25/2012 Provider: CHARLEEN LEY PA-C Diagnosis: ab Last Documented On 3 3:35PM By Hilario 3 User ; [facility], [facility] Medications Administered Includes: Administered Medications from this encounter No Administered Medications Recorded Vital Signs Includes: Vital Signs from this encounter Vital Name 10/03/2022 10:00A Height (in) 65 Weight (lb) 161 Body Mass Index 26.8 Body Surface Area 1.8 Note: ck Last Documented: On 10/03/2022 10:01A M ; [facility], [facility] Results Includes: Results discussed during this encounter [...] She had her recent DXA scan at [facility], with findings of osteoporosis. That report was not available for my review today. Social History Description Last Updated No recent change in diet 10/03/2022 Last Documented On 3 10:37AM ; [facility], [facility] Not a current smoker. 10/03/2022 Last Documented On 3 10:37AM ; [facility], [facility] Not using drugs 10/03/2022 Last Documented On 3 10:37AM ; [facility], [facility] Tobacco non-user 09/29/2022 Last Documented On 3 9:52AM ; [facility], [facility] Caffeine use 05/23/2017 Last Documented On 3 9:52AM ; [facility], [facility] Not a current smoker 05/23/2017 Last Documented On 3 9:52AM ; [facility], [facility] Not exercising regularly 05/23/2017 Last Documented On 3 9:52AM ; [facility], [facility] Not using alcohol 05/23/2017 Last Documented On 3 9:52AM ; [facility], [facility] No tobacco use 07/26/2012 Last Documented On 3 9:52AM ; [facility], [facility] Smoking status : Never smoked/ Recode: 4 07/26/2012 Last Documented On 3 9:52AM ; [facility], [facility] Procedures and Surgical History Includes: Procedures from this encounter Procedures Code Diagnosis Performing Provider Service L ocation Service Date use of tobacco assessment performed 1000F Last Documented On 3 10:01AM ; [facility], [facility] patient screened for future fall risk: documentation of any fall with injury in past year 1100F Last Documented On 3 10:01AM ; [facility], [facility] Surgical History Last Updated History of appendectomy 06/02/2017 Last Documented On 3 9:52AM ; [facility], [facility] Medical History Includes: Medical History addressed during this encounter Description Last Updated Thyroid disease 06/02/2017 Last Documented On 3 9:52AM ; [facility], [facility] Family History Includes: Family History addressed during this encounter Description Last Updated Family history of heart disease 06/02/20 17 Last Documented On 3 9:52AM ; [facility], [facility] Review of Systems Includes: Review of Systems [...] Diagnosis IN HOUSE REFERRAL Veronica Leon PA-C [facility] 10/04/19 23 9:44AM 10:31AM Insurance Includes: Active Insurance Policies Plan Name Member ID Group # Subscriber Relationship Effect sarah Dates 1 - Medicare Part B [facility] [id number] [place] Paris Self 2 - [facility] Medicare Supplement Insurance [id number] [place] Paris Self Clinical Notes Includes: Clinical Notes from this encounter * Progress note Date Encounter Last Documented by 10/03/2022 IN HOUSE REFERRAL Last documente d on 10/03/2022; 10:37 AM, Veronica Leon PA-C; [facility], [facility] Active Problems & Conditions - Joint Pain [...] She had her recent DXA scan at [facility], with findings of osteoporosis. That report [...] She had her recent DXA scan at [facility], with findings of osteoporosis. That report [...]
--- OUTSIDE RECORDS SUMMARY | 2024-05-07 12:08 | XMS_ITS | Clinical Summary ---
Author Organization [facility] , [facility] Address [address] [place] [address] Phone Care Team Providers Care Air Dispatcher Name Role Phone Zak JANG, Oniel Robles Unavailable [phone] Suzanne Mae APRN Unavailable Unavailable Reason for Visit and Chief Complaint The Chief Complaint is: Left knee pain Problems Includes: Problems addressed during this encounter and other active Problems Current Visit Onset Date Resolved Date Provider Conditio n Status Joint Pain, Localized in the Knee 05/23/2017 Oniel Crespo MD Active Last Documented On 7 1:08PM ; [facility] Past Visits Onset Date Resolved Date Provider Condition Status Left Ankle Joint Pain 09/29/2022 Romaine Villegas Active Last Documented On 3 9:54AM ; [facility] Joint Pain in the Toes 07/26/2012 Oniel garland MD Active Last Documented On 3 2:38PM ; [facility] Plan of Treatment Instructions to patient Instructions for patient Last Documented On 7 1:14PM ; [facility] Assessments Includes: Assessments from this encounter Findings Georgia Raina is a 62 clinical assessment of left knee pain. - Last Documented On 05/25/2017 4:12PM ; [facility] She fell landing directly on her left knee 5 days ago. She was holding her [id number] infant that time and then protecting him she [...] is a 7/10. She has just an [id number] brace. - Last Documented On 05/25/2017 4:12PM [...] On 7 1:12PM By Valentin Fonseca ; [facility], [facility] Relafen 500 mg OR TABS Provider: JANNET LEY PA-C Diagnosis: Last Documented On 7 1:12PM By Valentin Fonseca ; [facility], [facility] Current Medications (continue as prescribed) Prolia 60 MG/ML Subcutaneous Solution Prefilled Syring e 10/03/2022 Provider: Diagnosis: Last Documented On 3 10:07AM By Jasmin Pedro ; [facility], [facility] Atorvastatin Calcium 20 MG Oral Tablet 09/09/2022 Pr ovider: Diagnosis: Last Documented On 3 10:07AM By Jasmin Pedro ; [facility], [facility] Levothyroxine Sodium 88 MCG Oral Tablet 07/26/2022 P rovider: Diagnosis: Last Documented On 3 10:11AM By Claudia Campbell ; [facility], [facility] Synthroid 50 MCG OR TABS 07/26/2012 Provider: Diagnosis: Last Documented On 3 2:38PM By Hilario 4 User ; [facility], [facility] Past Medications on file Mobic 15MG Oral Tablet 06/02/2017 - 06/17/2017 Provide r: Oniel Crespo MD Diagnosis: 1 tab every 12 hours Last Documented On 7 8:51AM By Chalo Pollock ; [facility], [facility] Voltaren 1% TD GEL 07/26/2012 - 08/25/2012 Provider: CHARLEEN LEY PA-C Diagnosis: ab Last Documented On 3 3:35PM By Hilario 3 User ; [facility], [facility] Medications Administered Includes: Administered Medications from this encounter No Administered Medications Recorded Vital Signs Includes: Vital Signs from this encounter Vital Name 05/23/2017 01:17P Blood Pressure Sitting (mmHg) 120/72 Pulse Rate-Sitting (bpm) 74 Height (in) 65 Weight (lb) 147 Body Mass Index (kg/m2) 24.5 Body Surface Area (m2) 1.7 Note: CA Last Documented: On 05/23/2017 1:17PM ; [facility], [facility] Results Includes: Results discussed during [...] 05/23/2017 Last Documented On 7 4:12PM ; [facility], [facility] Not a current smoker 05/23/2017 Last Documented On 7 4:12PM ; [facility], [facility] Not exercising regularly 05/23/2017 Last Documented On 7 4:12PM ; [facility], [facility] Not using alcohol 05/23/2017 Last Documented On 7 4:12PM ; [facility], [facility] No tobacco use 07/26/2012 Last Documented On 7 1:13PM ; [facility], [facility] Smoking status : Never smoked/ Recode: 4 07/26/2012 Last Documented On 7 1:13PM ; [facility], [facility] Procedures and Surgical History Includes: Procedures from this encounter Procedures Code Diagnosis Performing Provider Service L ocation Service Date history of brace Last Documented On 7 1:14PM ; [facility], [facility] Clinical summary provided to patient Last Documented On 7 1:14PM ; [facility], [facility] history of an X-ray was performed [id number] Last Documented On 7 1:14PM ; [facility], [facility] Surgical History Last Updated History of appendectomy 05/23/2017 Last Documented On 7 4:12PM ; [facility], [facility] Medical History Includes: Medical History addressed during this encounter Description Last Updated Thyroid disease 05/23/2017 Last Documented On 7 4:12PM ; [facility], [facility] Family History Includes: Family History addressed during this encounter Description Last Updated Family history of heart disease 05/23/20 17 Last Documented On 7 4:12PM ; [facility], [facility] Review of Systems Includes: Review [...] Time Diagnosis Physician Specified Oniel Crespo MD [facility] 05/23/20 17 12:38PM 1:40PM Insurance Includes: Active Insurance Policies Plan Name Member ID Group # Subscriber Relationship Effect sarah Dates 1 - Medicare Part B [facility] [id number] [place] Ring Self 2 - [facility] Insurance [id number] [place] Ring Self Clinical Notes Includes: Clinical Notes from this encounter No Clinical Notes Recorded
--- OUTSIDE RECORDS SUMMARY | 2024-05-07 12:08 | XMS_ITS | Clinical Summary ---
Author Organization [facility] , [facility] Address [address] [address] Phone Care Team Providers Care Learning And Development Intern Name Role Phone Zak JANG, Oniel Robles Unavailable [phone] Mae Suzanne TROY Unavailable Unavailable Reason for Visit and Chief Complaint referred by James Singh - The Chief Complaint is: Toe pain Problems Includes: Problems addressed during this encounter and other active Problems All Visits Onset Date Resolved Date Provider Condition S tatus Left Ankle Joint Pain 09/29/2022 Romaine Villegas Active Last Documented On 3 9:54AM ; [facility], [facility] Joint Pain, Localized in the Knee 05/23/2017 Bre Crespo MD Active Last Documented On 7 1:08PM ; [facility], [facility] Joint Pain in the Toes 07/26/2012 Oniel garland MD Active Last Documented On 3 2:38PM ; [facility], [facility] Plan of Treatment Patient will follow up with Dr Crespo 09/04/12 at 330pm / gb - Last Documented On 09/03/2012 3:01PM ; [facility], [facility] Assessments Includes: Assessments from this encounter No Assessments Recorded Medical Equipment - Implanted Devices Includes: Current Devices No Medical Equipment Recorded Medications Includes: Medications discussed during this encounter and other current Medications Current Medications (continue as prescribed) Prolia 60 MG/ML Subcutaneous Solution Prefilled Syring e 10/03/2022 Provider: Diagnosis: Last Documented On 3 10:07AM By Jasmin Pedro ; [facility], [facility] Atorvastatin Calcium 20 MG Oral Tablet 09/09/2022 Pr ovider: Diagnosis: Last Documented On 3 10:07AM By Jasmin Pedro ; [facility] Levothyroxine Sodium 88 MCG Oral Tablet 07/26/2022 P bradley: Diagnosis: Last Documented On 3 10:11AM By Claudia Campbell ; [facility] Synthroid 50 MCG OR TABS 07/26/2012 Provider: Diagnosis: Last Documented On 3 2:38PM By Hilario Naranjo User ; [facility] Medications Administered Includes: Administered Medications from this encounter No Administered Medications Recorded Vital Signs Includes: Vital Signs from this encounter Vital Name 08/09/2012 12:00A Blood Pressure Sitting (mmHg) 139/66 Pulse Rate-Sitting (bpm) 77 Height (in) 65 Weight (lb) 148 Body Mass Index (kg/m2) 24.6 Body Surface Area (m2) 1.7 Last Documented: On 08/09/2012 3:15PM ; [facility] Results Includes: Results discussed during this encounter No Results Recorded For Specified Dates History of Present Illness Includes: History of Present Illness from this encounter ASAF Paris is a 57 year old female. - Medication list reviewed. Social History Description Last Updated No tobacco use 08/09/2012 Last Documented On 3 3:01PM ; [facility] Smoking status : Never smoked/ Recode: 4 08/09/2012 Last Documented On 3 3:01PM ; [facility] Procedures and Surgical History Includes: Procedures from this encounter Procedures Code Diagnosis Performing Provider Service L ocation Service Date Clinical summary provided to patient Last Documented On 3 3:14PM ; [facility] Medical History Includes: Medical History addressed [...] Time Diagnosis Follow Up Oniel Crespo MD [facility] 3 2:59PM 3:47PM Insurance Includes: Active Insurance Policies Plan Name Member ID Group # Subscriber Relationship Effect sarah Dates 1 - Medicare Part B [facility] [id number] [place] Self [facility] [id number] [place] Clinical Notes Includes: Clinical Notes from this encounter No Clinical Notes Recorded
--- OUTSIDE RECORDS SUMMARY | 2024-05-07 12:08 | XMS_ITS ---
Care Plan - [facility], [facility] Created on: May 07, 2024 Georgia Paris : 1955 Sex: Female Author Organization [facility] , [facility] Address [address] [place] [address] Phone Care Team Providers Care Polisher Apprentice Name Role Phone Zak JANG, Oniel Robles Unavailable Unavailable Suzanne Mae APRN Unavailable Unavailable
--- OUTSIDE RECORDS SUMMARY | 2024-05-07 12:08 | XMS_ITS ---
Author Organization [facility] Address [address] [place] [address] Phone Care Team Providers [facility] Attendant Name Role Phone Zak JANG, Oniel Robles Unavailable [phone] Suzanne Mae APRN Unavailable Unavailable Problems Includes: Active, inactive, and resolved Problems All Visits Onset Date Resolved Date Provider Condition S tatus Left Ankle Joint Pain 09/29/2022 Romaine Villegas Active Last Documented On 3 9:54AM ; [facility] Joint Pain, Localized in the Knee 05/23/2017 Bre Crespo MD Active Last Documented On 7 1:08PM ; [facility] Joint Pain in the Toes 07/26/2012 Oniel garland MD Active Last Documented On 3 2:38PM ; [facility], [facility] Plan of Treatment Referrals To Diagnosis Consult with Orthopedic Veronica Leon PA-C Note: IHR per ES L distal fi bula fx4.24 @ 10am//sv Last Documented On 3 1:22PM ; [facility] Instructions to patient Lose weight Last Documented On 3 10:01AM ; [facility] Lose weight Last Documented On 3 10:12AM ; [facility] Instructions for patient Last Documented On 7 1:14PM ; [facility] Assessments Includes: Assessments for all patient encounters No Assessments Recorded Instructions Includes: Instructions for all patient encounters Instructions to patient Lose weight Last Documented On 3 10:01AM ; [facility] Lose weight Last Documented On 3 10:12AM ; [facility], [facility] Instructions for patient Last Documented On 7 1:14PM ; [facility], [facility] Medical Equipment - Implanted Devices Includes: Current and historical Devices No Medical Equipment Recorded Medications Includes: Current and historical Medications Current Medications (continue as prescribed) Prolia 60 MG/ML Subcutaneous Solution Prefilled Syring e 10/03/2022 Provider: Diagnosis: Last Documented On 3 10:07AM By Jasmin Pedro ; [facility], [facility] Atorvastatin Calcium 20 MG Oral Tablet 09/09/2022 Pr ovider: Diagnosis: Last Documented On 3 10:07AM By Jasmin Pedro ; [facility], [facility] Levothyroxine Sodium 88 MCG Oral Tablet 07/26/2022 P rovider: Diagnosis: Last Documented On 3 10:11AM By Claudia Campbell ; [facility], [facility] Synthroid 50 MCG OR TABS 07/26/2012 Provider: Diagnosis: Last Documented On 3 2:38PM By Hilario 4 User ; [facility], [facility] Past Medications on file Atorvastatin Calcium 20 MG Oral Tablet 09/09/2022 - Provider: Diagnosis: Last Documented On 3 10:11AM By Claudia Campbell ; [facility], [facility] Mobic 15MG Oral Tablet 06/02/2017 - 06/17/2017 Provide r: Oniel Crespo MD Diagnosis: 1 tab every 12 hours Last Documented On 7 8:51AM By Chalo Pollock ; [facility], [facility] Voltaren 1% TD GEL 07/26/2012 - 08/25/2012 Provider: CHARLEEN LEY PA-C Diagnosis: ab Last Documented On 3 3:35PM By Hilario Weiner User ; [facility], [facility] Lipitor 10 MG OR TABS 07/26/2012 - 05/23/2017 Provider : Diagnosis: Last Documented On 7 1:12PM By Valentin Fonseca ; [facility], [facility] Relafen 500 mg OR TABS 07/26/2012 - 05/23/2017 Provide r: CHARLEEN JLI PA-C Diagnosis: ab Last Documented On 7 1:12PM By Valentin Fonseca ; [facility], [facility] Medications Administered Includes: Administered Medications in patient's chart No Administered Medications Recorded Results Includes: Results from 05/07/2023 through 05/07/2024 No Results Recorded For Specified Dates History of Present Illness History of Present Illness not supported for this document type No History of Present Illness Recorded Social History Description Last Updated No recent change in diet 10/03/2022 Last Documented On 3 10:37AM ; [facility] Not a current smoker. 10/03/2022 Last Documented On 3 10:37AM ; [facility] Not using drugs 10/03/2022 Last Documented On 3 10:37AM ; [facility] Tobacco non-user 09/29/2022 Last Documented On 3 1:22PM ; [facility] Caffeine use 05/23/2017 Last Documented On 7 4:12PM ; [facility] Not a current smoker 05/23/2017 Last Documented On 7 4:12PM ; [facility] Not exercising regularly 05/23/2017 Last Documented On 7 4:12PM ; [facility] Not using alcohol 05/23/2017 Last Documented On 7 4:12PM ; [facility] No tobacco use 07/26/2012 Last Documented On 3 3:51PM ; [facility] Smoking status : Never smoked/ Recode: 4 07/26/2012 Last Documented On 3 3:51PM ; [facility], [facility] Procedures and Surgical History Surgical History Last Updated History of appendectomy 06/02/2017 Last Documented On 7 8:37AM ; [facility] Medical History Includes: Medical History in patient's chart Description Last Updated Thyroid disease 06/02/2017 Last Documented On 7 8:37AM ; [facility] Family History Includes: Family History in patient's chart Description Last Updated Family history of heart disease 06/02/20 Last Documented On 7 8:37AM ; [facility], [facility] Review of Systems Review of Systems not [...] Dates 1 - Medicare Part B [facility] [id number] [place] Ring Self 2 - Count Includes [facility] Medicare Supplement Insurance [id number] [place] Ring Self Clinical Notes Includes: Signed Clinical Notes starting from 05/26/2022 No Clinical Notes Recorded
--- NOTE | 2024-05-07 12:10 | XR_ITS ---
FINAL REPORT CLINICAL HISTORY: RADICULOPATHY COMPARISON: None FINDINGS: AP, lateral, and oblique views of the lumbar spine were obtained. There is no acute fracture or acute malalignment. There is grade 1 anterior spondylolisthesis of L4 on L5 and L5 on S1. There is multilevel degenerative disc disease, most pronounced at L4-5 and L5-S1. No acute paraspinal abnormality is identified. A right upper quadrant calcification could be a gallstone. IMPRESSION: Anterior spondylolisthesis of L4 on L5 and L5 on S1 with multilevel degenerative disc disease. Reviewed, Interpreted and Dictated by Patricia Ware MD Transcribed by Kitty Castillo Authenticated and [facility]
== END 2024-05-07 23:59 | disposition home or self-care (01) ==
LOC: RAD 12:07
PROVIDERS: PCP Nurse Practitioner Family; Visit Provider Neurological Surgery
DX: M54.16 Radiculopathy, lumbar region (principal)
CPT/HCPCS: 72110

== ENCOUNTER 2024-06-18 02:23 | Emergency (ER) | payer MEDICARE, OTHER, SELFPAY ==
[2024-06-18 02:25] VITALS: BP 155/90; PULSE 90; RESP 18; TEMP 36.7; O2SAT 98; BMI 26.6
--- NOTE | 2024-06-18 02:34 | HMH.EDGENADL ---
Discharge Plan Disposition Patient Disposition: Home, Self-Care Prescriptions Prescriptions: New methocarbamol 500 mg tablet 500 mg PO Q6H PRN (Reason: pain) Qty: 30 0RF lidocaine 5 % adhesive patch,medicated 1 patch topical DAILY PRN (Reason: pain) Qty: 30 0RF Rx Instructions: leave on most painful area for up to 12 hrs No Action levothyroxine 88 mcg tablet 88 mcg PO DAILY atorvastatin 10 mg tablet 20 mg PO DAILY bupropion HCl 150 mg tablet extended release 24 hr 150 mg PO DIRECTED Rx Instructions: pt weaning herself off, reported taking every other day Prolia 60 mg/mL syringe 60 mg SQ [id number] Referrals Follow up/Referrals: Suzanne Jesus APRN [Primary Care Provider] - See instructions Activity Restrictions/Add. Instructions Additional Instructions/Restrictions: Please follow-up with your primary care provider. Please return to the emergency department if you develop any new or worsening symptoms or become concerned for your health. Please take Tylenol, use lidocaine patch and take Robaxin as needed for pain. Clinical Impressions Clinical Impression: Arm pain Qualifiers: Laterality: left Qualified Code(s): M79.602 - Pain in left arm Print Language Print Language: Lithuanian Discharge ED Provider: Josef Salgado General Adult HPI General Chief complaint: PAIN Stated complaint: L arm pain Time Seen by Provider: 06/18/24 02:25 Mode of Arrival: Ambulatory Source of Information: Significant Other Limitations: No Limitations Description of Symptoms (Recalled from ER Triage Doc. by RN): Patient presents to ED with left arm pain. Patient states it starts in her left shoulder and has been on and off for a few days. Patient denies any injury or fall to left arm. Patient rates pain 8/10. History of Present Illness HPI narrative: 69-year-old female presents with left arm pain. She reports it has been going on for the last couple of days. No obvious inciting incident. Was slow in onset, varies in intensity. No reported trauma. No numbness or tingling to the arm, no swelling, no history of blood clots, no chest pain palpitations shortness of breath or any other cardiac symptoms. She has some sharp pain in her left trap. No pain with range of motion of the arm. She did not take anything for pain prior to arrival. Related Data Home Medications ?Medication ?Instructions ?Recorded ?Confirmed levothyroxine 88 mcg tablet 88 mcg PO DAILY thyroid supplement 12/07/20 10/09/23 atorvastatin 10 mg tablet 20 mg PO DAILY 01/30/23 10/09/23 bupropion HCl 150 mg 24 hr tablet, 150 mg PO DIRECTED Weight Loss 01/30/23 10/09/23 extended release denosumab 60 mg/mL subcutaneous 60 mg SQ [id number] 01/30/23 10/09/23 syringe (Prolia) Previous Rx's ?Medication ?Instructions ?Recorded lidocaine 5 % topical patch 1 patch topical DAILY PRN pain #30 06/18/24 ea methocarbamol 500 mg tablet 500 mg PO Q6H PRN pain #30 tabs 06/18/24 Allergies Allergy/AdvReac Type Severity Reaction Status Date / Time No Known Allergies Allergy Verified 10/09/23 12:20 [facility] Disclaimer: The information contained in this section may have been updated after the patient was seen, as this information can be updated by other users. Medical History Hypothyroidism Thyroid disease Surgical History H/O tubal ligation Hx of appendectomy Family History Other No significant family history Social History Smoking Status: Never smoker alcohol intake: never substance use type: denies use current occupational status: other Travel in the last 8 weeks: None household members: spouse housing: assisted living facility current occupational exposures/hazards: No Have you lived/traveled outside [place] in past 30 days?: No Contact w/someone who lives/traveled outside [place] past 30 days?: No Exposure to someone with infectious disease in past 14 days?: No Do you have a fever (greater than 100.4 F or 38 C)?: No Have you tested positive for COVID-19: No Exposed to someone with COVID-19 in past 14 days?: No Do you have a sore throat?: No Do you have a cough?: No Do you have any weakness?: No Do you have any diarrhea?: No Are you experiencing any unusual bleeding?: No Do you have any muscle aches/pain?: No Do you have any abdominal pain?: No Are you experiencing loss of taste or smell?: No Other Medical History Have you received the Flu Vaccine for this season: Yes Have you received the Pneumonia Vaccine: No ROS Obtained: Yes All systems reviewed & no additional complaints except as documented Physical Exam General General appearance: alert and anxious Head Head exam: atraumatic and normocephalic Eye Eye exam: Present normal appearance, PERRL and EOMI ENT ENT exam: Present normal oropharynx and normal external ear exam Neck Neck exam: Present normal inspection and full ROM; Absent tenderness Chest Chest inspection: Present normal inspection and symmetric chest wall rise; Absent tenderness Respiratory Respiratory exam: Present normal lung sounds bilaterally; Absent respiratory distress Cardiovascular Cardiovascular exam: Present regular rate and normal rhythm Abdominal Exam Abdominal exam: Present soft; Absent distention, tenderness or guarding Extremities Exam Extremities exam: Present normal inspection, full ROM and other (Upper extremities: Equal strength sensation and range of motion, radial and ulnar pulses, capillary refill. No unilateral swelling, redness, discoloration.); Absent tenderness, edema or joint swelling Back Exam Back exam: Present normal inspection; Absent tenderness Neurological Exam Neurological exam: Present alert and oriented X3; Absent motor sensory deficit (Normal strength and sensation of the bilateral upper extremities) Psychiatric Psychiatric exam: Present normal affect and normal mood Skin Skin exam: Present warm, dry and normal color Lymphatic Lymphatic Findings: no adenopathy Medical Decision Making Medical Records Medical records reviewed: Yes I reviewed the patient's medical records. Screening: Per USPSTF and CDC recommendations, given the prevalence of disease in our region, it is our hospital?s policy to screen for HIV and viral Hepatitis for all patients aged 18 and over and those with ongoing risk factors. Moo Inquiry Pt receiving controlled substance: No Moo was queried for this patient: No Vital Signs: 06/18/24 02:25 Temperature 98.1 F Temperature Source Oral Pulse Rate [Right Apical] 90 Respiratory Rate 18 Blood Pressure [Right Arm] 155/90 H Blood Pressure Mean [Right Arm] 111 Blood Pressure Source [Right Arm] Automatic Cuff Blood Pressure Position [Right Arm] Supine 02 Sat by Pulse Oximetry 98 Oxygen Delivery Method Room Air Lab Data Lab results reviewed: Yes I reviewed the patient's lab results. Orders (Tests/Meds): ED MEDICATIONS Generic Name Dose Route Start Last Admin Trade Name Freq PRN Reason Stop Dose Admin Acetaminophen 1,000 mg 06/18/24 02:51 Acetaminophen 500mg Tab PO 06/18/24 02:52 ONCE ONE Ibuprofen 400 mg 06/18/24 02:51 Ibuprofen 400 Mg Tablet PO 06/18/24 02:52 ONCE ONE Lidocaine 1 each 06/18/24 02:51 Lidocaine 5% Transdermal Patch TP 06/18/24 02:52 ONCE ONE Methocarbamol 500 mg 06/18/24 02:51 Methocarbamol 500mg Tablet PO 06/18/24 02:52 ONCE ONE Medical Decision Narrative: 69-year-old female presents for left arm pain, intermittent over the last couple of days without any other concerning history.. History was obtained via interactive discussion with patient. On arrival, patient is [afebrile, hemodynamically stable, satting appropriately, alert, oriented x4, GCS 15], moving all extremities spontaneously. Full physical exam performed and significant for benign physical exam, no unilateral upper extremity findings of any kind. Differential includes but is not limited to musculoskeletal pain, radiculopathy, arterio/venous clot, muscle spasm, fracture or dislocation Patient was given Tylenol ibuprofen lidocaine patch and Robaxin for symptomatic management. I had extensive discussion with patient regarding her presentation. History and exam is benign. No cardiac symptoms of any kind at any point during the last couple of days, specifically no shortness of breath palpitations chest pain etc, nor does patient have cardiac history. Patient has had no midline back pain to suggest aortic pathology, patient has no evidence of arterial or venous insufficiency or thrombosis on exam, nor does she have any history of such. No evidence of trauma, no significant bony tenderness, normal range of motion which suggest no fracture dislocation etc. Most likely etiology based on history and exam is radicular pain. There is no numbness or weakness on exam to suggest emergent spinal cord pathology. I discussed with family the utility of obtaining cardiac workup, trauma workup, neurologic workup, etc., but at this time given history and exam it does not seem that they are indicated. I prescribed patient a low-dose muscle relaxer and lidocaine patches and encouraged her to follow-up/return to the ER if symptoms worsen or do not improve. She reports that she will get into see her PCP in the morning if she is not feeling better. Procedures Risk/Benefits of Procedure(s) Were Explained: Yes Critical Care Critical Care Time Critical Care Time: No
[2024-06-18] MEDS: ACETAMINOPHEN 500MG TAB 1000 MG PO (02:54)
[2024-06-18] MEDS: LIDOCAINE 5% TRANSDERMAL PATCH 1 EACH TP (02:54)
[2024-06-18] MEDS: METHOCARBAMOL 500MG TABLET 500 MG PO (02:55)
[2024-06-18 02:57] VITALS: BP 148/92; PULSE 80; RESP 15; TEMP 36.6; O2SAT 92
== END 2024-06-18 03:02 | disposition home or self-care (01) ==
PROVIDERS: Emergency Provider Emergency Medicine; PCP Nurse Practitioner Family
DX: M79.602 Pain in left arm (principal); M25.512 Pain in left shoulder
CPT/HCPCS: 99283

== ENCOUNTER 2024-09-24 13:28 | Outpatient (CLI) | payer MEDICARE, OTHER, SELFPAY ==
--- NOTE | 2024-09-24 14:15 | MM_ITS ---
PROCEDURE INFORMATION: Exam: MG Bilateral Screening 3D Mammography Exam date and time: 09/24/2024 2:24 PM Age: 69 years old Clinical indication: Screening examination TECHNIQUE: Imaging protocol: Bilateral Screening tomosynthesis and 2D mammography including computer-aided detection (CAD) when performed. COMPARISON: 1. MG MM DIG SCREENING MAMM BI W/CAD 08/28/2023 10:38 AM 2. MG MM DIG SCREENING MAMM BI W/CAD 08/22/2022 10:13 AM FINDINGS: MAMMOGRAPHY: Breast composition: The breasts are almost entirely fatty. Mass: None. Architectural distortion: None. Calcifications: No suspicious calcifications. Asymmetric density: None. Skin thickening: None. Axillary adenopathy: None. IMPRESSION: No mammographic evidence of malignancy. Annual screening is recommended unless otherwise clinically indicated. ASSESSMENT: BI-RADS Category 1: Negative.
== END 2024-09-24 23:59 | disposition home or self-care (01) ==
LOC: RAD 13:29
PROVIDERS: PCP Nurse Practitioner Family; Visit Provider Nurse Practitioner Family
DX: Z12.31 Encounter for screening mammogram for malignant neoplasm of breast (principal)
CPT/HCPCS: 77063; 77067

== ENCOUNTER 2024-10-15 09:08 | Outpatient (CLI) | payer MEDICARE, OTHER, SELFPAY ==
--- NOTE | 2024-10-15 09:12 | XR_ITS ---
FINAL REPORT TECHNIQUE: Bone densitometry calculations of the lumbar spine and left hip were obtained. CLINICAL HISTORY: SCREENING COMPARISON: None FINDINGS: Using L1-4, the bone mineral density of the spine is 0.737 g/cm2, corresponding to T-score of -2.8 and a Z score of -0.7. This is within the range of osteoporosis. Using the left hip, the bone mineral density of the femoral neck is 0.711 g/cm2, corresponding to a T-score of -1.9 and a Z-score of -0.4. This is within the range of osteopenia. FRAX not reported because some T-score at or below -2.5; patient being treated for osteoporosis NOTE: T-score: Standard deviation compared with peak bone mass of young adult mean. *Following the recommendations of the International Society of Bone densitometry, classification of hip BMD is based on the lower of two T-scores; total hip or femoral neck. IMPRESSION: 1. Bone mineral density of the lumbar spine within the range of osteoporosis. 2. Bone mineral density of the left femoral neck within the range of osteopenia. Reviewed, Interpreted and Dictated by Patricia Ware MD Transcribed by Susie Resendez Authenticated and . [facility]
== END 2024-10-15 23:59 | disposition home or self-care (01) ==
LOC: RAD 09:10
PROVIDERS: PCP Nurse Practitioner Family; Visit Provider Nurse Practitioner Family
DX: Z00.00 Encounter for general adult medical examination without abnormal findings (principal); M81.0 Age-related osteoporosis without current pathological fracture
CPT/HCPCS: 77080

== ENCOUNTER 2024-10-15 09:38 | Outpatient (CLI) | payer MEDICARE, OTHER, SELFPAY ==
[2024-10-15] MEDS: DENOSUMAB 60 MG/ML SYRINGE SUBCUT (09:43)
[2024-10-15 09:48] VITALS: BP 127/63; PULSE 62; RESP 18; O2SAT 100
== END 2024-10-15 09:48 | disposition home or self-care (01) ==
LOC: INF 09:40
PROVIDERS: PCP Nurse Practitioner Family; Visit Provider Nurse Practitioner Family
DX: Z00.00 Encounter for general adult medical examination without abnormal findings (principal); M81.0 Age-related osteoporosis without current pathological fracture; M85.852 Other specified disorders of bone density and structure, left thigh
CPT/HCPCS: 77080; 96372; J0897

== ENCOUNTER 2025-03-04 15:26 | Outpatient (CLI) | payer MEDICARE, OTHER, SELFPAY ==
--- NOTE | 2025-03-04 15:30 | XR_ITS ---
FINAL REPORT CLINICAL HISTORY: LOWER BACK PAIN FINDINGS: AP, lateral, and swimmer's views of the thoracic spine were obtained. There is no prior exam for comparison. The mid thoracic spine is somewhat limited on the lateral view, mild compression fracture is not excluded. There is multilevel degenerative disc disease. Paraspinal soft tissues are within normal limits. IMPRESSION: Somewhat limited exam, mild compression fracture is not excluded. If there is history of trauma, consider CT or MRI. Reviewed, Interpreted and Dictated by Patricia aWre MD Transcribed by Toyin Sam Authenticated and [facility]
== END 2025-03-04 23:59 | disposition home or self-care (01) ==
PROVIDERS: PCP Nurse Practitioner Family; Visit Provider Nurse Practitioner Family
DX: M54.6 Pain in thoracic spine (principal); R93.7 Abnormal findings on diagnostic imaging of other parts of musculoskeletal system
CPT/HCPCS: 72072

== ENCOUNTER 2025-03-11 06:45 | Outpatient (CLI) | payer MEDICARE, OTHER, SELFPAY | END 2025-03-11 23:59 | disposition home or self-care (01) | LOC: RAD 06:46 | PROVIDERS: PCP Nurse Practitioner Family; Visit Provider Nurse Practitioner Family | DX: M54.6 Pain in thoracic spine (principal) ==

== ENCOUNTER 2025-03-24 06:53 | Outpatient (CLI) | payer MEDICARE, OTHER, SELFPAY ==
--- OUTSIDE RECORDS SUMMARY | 2025-03-24 06:56 | XMS_ITS | Referral Summary ---
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 Active levothyroxine (SYNTHROID) 88 MCG tablet Take 1 tablet (88 mcg total) by mouth Daily (0600). Active atorvastatin (LIPITOR) 20 MG tablet Take 1 tablet (20 mg total) by mouth nightly. Active calcium carbonate/stella min D3 (CALTRATE 600 + D ORAL) Take 1 tablet by mouth 2 (two) times daily. Active vit C/E/Zn/coppr/l utein/zeaxan (PRESERVISION AREDS-2 ORAL) Take 1 capsule by mouth 2 (two) times daily. Active polycarbophiL (FIBERCON) 625 mg tablet Take 1 tablet (625 mg total) by mouth daily. Active HAIR, SKIN AND NAILS, BIOTIN, ORAL Take 1 capsule by mouth 2 (two) times daily. Active oxyCODONE-acet aminophen (PERCOCET) 7.5-325 mg per tablet Take 1 tablet by mouth every 6 (six) hours as needed for pain Look-alike/Sound -alike medication. Max Daily Amount: 4 tablets 50 tablet 5 Active Social History Tobacco Use Types Packs/Day Years Used Date Smoking Tobacco: Never Smokeless Tobacco: Never Alcohol Use Standard Drinks/Week Comments Not Currently 0 (1 standard drink = 0.6 oz pur e alcohol) occasional social drink [facility] Intimate Partner Violence Answer Da te Recorded Within the last year, have y ou been afraid of your partner or ex-partner? No 07/02/2024 Within the last year, have y ou been humiliated or emotionally abused in other ways by your partner or ex-partner? No Within the last year, have y ou been kicked, hit, slapped, or otherwise physically hurt by your partner or ex-partner? No 07/02/2024 Within the last year, have y ou been raped or forced to have any kind of sexual activity by your partner or ex-partner? No 07/02/2024 Utilities Answer Date Recorded In the past 12 months, has t he electric, gas, oil, or water company threatened to shut off services in your home? No 07/10/2024 Interpersonal Safety Answer Date Record ed How often does anyone, lindsey caraballo family and friends, physically hurt you? Never 07/10/2024 How often does anyone, lindsey caraballo family and friends, insult or talk down to you? Never 07/10/2024 How often does anyone, lindsey caraballo family and friends, threaten you with harm? Never 07/10/2024 How often does anyone, lindsey caraballo family and friends, scream or curse at you? Never 07/10/2024 Housing Stability Answer Date Recorded What is your living situation today? [facility] live 07/10/[address] you li ve. Do you have problems with any of the following? None of the above 07/10/2024 Food Insecurity Answer Date Recorded Within the past 12 months, y ou worried that your food would run out before you got money to buy more. Never true 07/10/2024 Within the past 12 months, t he food you bought just didn't last and you didn't have money to get more. Never true 07/10/2024 Transportation Needs Answer Date Record ed In the past 12 months, has l ack of reliable transportation kept you from medical appointments, meetings, work or from getting things needed for daily living? No 07/10/2024 Financial Resource Strain Answer Date R ecorded How hard is it for you to pa y for the very basics like food, housing, medical care, and heating? Would you say it is: Not hard at all 07/10/2024 Employment Answer Date Recorded Do you want help finding or keeping work or a job? I do not need or want help 07/10/2024 Family and Community Support Answer Chucho e Recorded If for any reason you need h elp with day-to-day activities such as bathing, preparing meals, shopping, managing finances, etc., do you get the help you need? I don't need any help 07/10/2024 Feeling Lonely or Isolated 0 07/10 Educational Attainment Answer Date Sonny rded Do you speak a language other than [place] at [facility]? No 07/10/2024 Do you want help with school or training? For example, starting or completing job training or getting a high school diploma, GED or equivalent. No 07/10/2024 Physical Activity Answer Date Recorded Number of minutes of exercise per week 90 07/10/2024 Self Management Answer Date Recorded Because of a physical, menta l, or emotional condition, do you have serious difficulty concentrating, remembering, or making decisions? (5 years or older) No 07/10/2024 Because of a physical, menta l, or emotional condition, do you have difficulty doing errands alone such as visiting a doctor's office or shopping? (15 years or older) No 07/10/2024 Substance Use Answer Date Recorded How many times in the past y ear have you used prescription drugs for non-medical reasons? Never 07/10/2024 How many times in the past year have you used [place] legal drugs? Never 07/10/2024 Mental Health Answer Date Recorded Calculation of above two rows 0 Comments No Sex and Gender Information Value Date Recorded Sex Assigned at Not on file Legal Sex Female 1:00 PM CDT Gender Identity Not on file Sexual Orientation Not on file Last Filed Vital Signs Vital Sign Reading Time Taken Comments Blood Pressure 116/57 07/10/2024 11:25 PM EST Pulse 73 07/10/2024 11:25 PM EST Temperature 36.6 C (97.9 F) 07/10/2024 11:20 PM EST Respiratory Rate 16 07/10/2024 11:25 PM EST Oxygen Saturation 98% 07/10/2024 11:25 PM EST Inhaled Oxygen Concentration - - Weight 75.9 kg (167 lb 6.4 oz) 07/10/2024 6:00 A M EST Height 165.1 cm (5' 5 ) 07/10/2024 6:00 AM EST Body Mass Index 27.86 07/10/2024 6:00 AM EST Plan of Treatment Not on file Medical Devices Implanted Type Area Automotive Service Writer Device Identifier Shelf Expiration Date Model / Serial / Lot Sealant Durasl Spine 5ml [id number] - [id number] Implanted:Qty: 1 on 07/10/2024 by Keegan Bee MD at [facility] IMPLANTS N/A: Back MED[employer] MIN INV THERAPY GRP [id number] / / [id number] Cage T/Plif 10mm [id number] - [id number] Implanted:Qty: 2 on 07/10/2024 by Keegan Bee MD at [facility] IMPLANTS N/A: Back J &J:DEPUY:DEPUY SPINE 05/11/2034 [id number] / / [id number] Scr Spne Johnson Fix 7x45mm 5 - [id number] Implanted:Qty: 4 on 07/10/2024 by Keegan Bee MD at [facility] IMPLANTS N/A: Back J &J:DEPUY:DEPUY SPINE 5 / 5 / Mis Ken Ply Scrw Set Ti - [id number] Implanted:Qty: 4 on 07/10/2024 by Keegan Bee MD at [facility] IMPLANTS N/A: Back J &J:DEPUY:DEPUY SPINE 0 / 0 / Mariano Prebnt 30mm [id number] - [id number] Implanted:Qty: 2 on 07/10/2024 by Keegan Bee MD at [facility] IMPLANTS N/A: Back J &J:DEPUY:DEPUY SPINE 0 / 0 / Bone Vivigen Formable Cell [facility] Bl-1600-002 - [id number] Implanted:Qty: 1 on 07/10/2024 by Keegan Bee MD at [facility] IMPLANTS N/A: Back LIFENET:LIFENET TRANSPLANT SRV 06/27/2025 BL-1600-00 2 / [id number] / Insurance MEDICARE PART A B Advance Directives For more information, please contact: [phone] Documents on File Type Date Recorded 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
--- OUTSIDE RECORDS SUMMARY | 2025-03-24 06:56 | XMS_ITS | Data Portability ---
Author Organization [place] [facility] [place] [facility] Address [address] [place] [address] Assessment Encounter Date Assessment Date Assessment LastModified by Organization Details LastModified Time 04/29/2024 04/29/2024 Assessment: Georgia Choudhary is a 69-year-old presenting to the clinic for evaluation of low back pain with radiation to L>R lower extremities. Patient presents with disc containing completed lumbar MRI through [facility] on 03/19/2024. Patient reports prior L5-S1 lumbar fusion completed in the by Dr. Parth Bailey with symptom relief to follow. Patient reports 3-4 months of what started out as left groin pain. Her pain has persisted and progressed to include the lateral left hip with radiation down lateral lower extremity with termination just past the knee. Imaging reveals developed adjacent segment disease with spondylolisthesis to L4-5. Due to her pain being generated to the left groin and lateral left hip, we would like patient to undergo evaluation with orthopedics. Patient additionally to undergo lumbar dynamic xrays. Should hip pathology be ruled out, will discuss additional surgical vs nonsurgical options related to her lumbar spine. Will call once evaluation and xrays completed. Imaging: I personally reviewed the imaging with Dr. Bailey to reveal the below findings. Patient presents with disc containing completed lumbar MRI through [facility] on 03/19/2024. Imaging reveals developing spondylolisthesis and enlarged joints, indicating potential instability, to L4-5 with fusion to L5-S1. Plan; Refer to orthopedics for evaluation of left hip Lumbar dynamic xrays, will call with results and plan moving forward. [email or web address] Not available 04/29/2024 22:52:01 07/29/2024 07/29/2024 Ms. Choudhary present s today status post L4-L5 PLIF 07/10. Cynthia removed with no issues or complications. All questions answered. [email or web address] Not available 07/29/2024 13:22:27 08/26/2024 08/26/2024 ASSESSMENT: Ms. Choudhary is a 69-year-old female here with her status post L4-5 PLIF on 07/10/[address] Bailey. Patient states her left lower extremity radiculopathy has improved as it used to go from her back down to her foot, now she only reports pain and burning sensation on the side of her left hip and lateral upper thigh. She is taking gabapentin and she will start weaning off of it. Dr. Bailey recommends more time before deciding about getting injections with pain management for residual pain. We will see her back in 3 months with lumbar x-rays. She can wean off brace which was order due to her osteoporosis. She can start increasing weight bearing up to 25 pounds. Activity can be increased as tolerated. She is going to [place] in about 3 weeks for vacation and she knows she does not have to wear her back brace at all times. Patient denies any bowel or bladder control issues, no saddle paresthesias. Patient verbalized understanding and is agreeable to this plan. Patient has no further questions or concerns at this time and is satisfied with this plan of care. Patient seen by surgeon and myself. IMAGING: I personally reviewed the images with Dr. Bailey and read the radiologist report. Lumbar x-ray on 08/26/2024 at [facility] show Hardware in stable position with no signs of complications PLAN: Follow-up in 3 months with AP lateral lumbar x-rays. [email or web address] Not available 08/26/2024 15:23:56 12/02/2024 12/02/2024 Mrs. Choudhary is doi ng well after an L4-5 fusion. I told her her left ankle numbness can continue to improve and resolve over a year. Her x-rays today look great. I am comfortable releasing her from my care. She understands to call at anytime with questions or concerns. [email or web address] Not available 12/02/2024 10:32:32 Plan of Treatment Reminders Order Date Submit Date Provider Last Modified By Organization Details Last Modified Time Details Appointments None record ed. Lab None record ed. Referral None record ed. Procedures None record ed. Surgeries None record ed. Imaging None record ed. Medication Orders None record ed. Patient TargetsNo targets recorded. Patient InstructionsNo instructions recorded. Reason for Referral None Reported. Results Created Date Observation Date Name Description Value Unit Range Abnormal Flag Note LastModifiedBy Organization Detail LastModifiedTime 04/29/20 24 04/29/2024 XR, hip, unila teral , 2 or 3 view [place] [facility] [address] [place] [address] Patibryanna t Name: JULIETH Rees t : 953 Patien t Orderi ng Provid er: ADELINE WEBB EXAM DATE: 2023 EXAM: XR LT HIP UNILAT ERAL, 2 OR 3 VWS COMPAR SHAYE: None. HISTOR Y: Low back and left hip pain. FINDIN GS: No fractu re is identi fied. There are mild degene rative change s in the left hip. There is minima l to mild medial joint space loss. There is mild margin al spurri ng. Limite d visual izatio n of the contra latera l hip demons trates mild degene rative change . IMPRES KELSY: 1. There are mild degene rative change s in the left hip. Interp reted By: Breana bui MD Electr onical ly Signed By: Breana bui MD on 2023 4:56 PM [facility] [place] [address] , [place], [address], 05/02/2024 13:38:28 05/07/20 24 05/07/2024 imagi ng/di agnos tic resul t No observ ation record ed. [facility] [address], [place], [address], 05/24/2024 20:49:49 05/20/20 24 05/07/2024 XR, lumbo sacra l spine , 4 or more view No observ ation record ed. [email or web address] [facility] [address], [place], [place], [address], 09/10/2024 12:03:20 08/27/19 25 08/26/2024 XR, lumbo sacra l spine , 2 or 3 view [facility] [address] [facility] [place] [address] [phone] Patibryanna t Name: JULIETH bhatti : [address] bhatti Orderi ng Provid er: ZULEYMA MENDEZT EXAM DATE: 2024 EXAM: XR LUMBAR AP/LAT CLINIC AL INFORM ATION: Back pain. IMAGES PROVID ED: AP, latera l and coned down views of the lumbar spine. COMPAR SHAYE: None. FINDIN GS: The patien t has had previo us L4-5 temper mill roller ior fixati on and interb ania fusion . No compli cation . No hardwa re loosen ing is indica shelia. No radiog raphic eviden ce of injury is noted. IMPRES KELSY: Uncomp licate d appear ing L4-5 fusion Interp reted By: Oniel Wagner MD Electr onical ly Signed By: Oniel Wagner MD on 025 1:50 PM [facility] [address] [place], [address], 08/28/2024 15:23:10 12/03/19 25 12/02/2024 XR, lumbo sacra l spine , 2 or 3 view [facility] [address] [facility] [place] [address] Patibryanna t Name: JULIETH bhatti : [address] Orderi ng Provid er: ZULEYMA BAILEY EXAM DATE: 2024 EXAM: XR LUMBAR AP/LAT CLINIC AL INFORM ATION: Back pain. Surger y follow -up IMAGES PROVID ED: AP, latera l and coned down views of the lumbar spine. COMPAR SHAYE: 025 FINDIN GS: Previo us L4-5 temper mill roller ior fixati on and interb ania fusion . There is no compli cation . No hardwa re loosen ing or fractu re. No parasp inal diseas e. No radiog raphic eviden ce of injury is noted. IMPRES KELSY: Stable uncomp licate d appear ing L4-5 fusion Interp reted By: Oniel Wagner MD Electr onical ly Signed By: Oniel Wagner MD on 025 10:17 AM [facility] [address] [place], [address], 12/02/2024 20:35:54 Result Notes Documentation Provider Name and Address Organization Details Recorded Time Xr, Hip, Unilateral, 2 Or 3 View : [facility] [place] [address] [address] Patient Name: GEORGIA CHOUDHARY Patient : 1955 Patient Ordering Provider: ADELINE WEBB EXAM DATE: 04/29/2024 EXAM: XR LT HIP UNILATERAL, 2 OR 3 VWS COMPARISON: None. HISTORY: Low back and left hip pain. FINDINGS: No fracture is identified. There are mild degenerative changes in the left hip. There is minimal to mild medial joint space loss. There is mild marginal spurring. Limited visualization of the contralateral hip demonstrates mild degenerative change. IMPRESSION: 1. There are mild degenerative changes in the left hip. Interpreted By: Helio Garcia MD [facility]elli [facility] 05/02/2024 13:38:28 Xr, Lumbosacral Spine, 2 Or 3 View : [facility] [address] [place] [address] Patient Name: GEORGIA CHOUDHARY Patient : 1955 Patient Ordering Provider: ALFRED BAILEY EXAM DATE: 08/26/2024 EXAM: XR LUMBAR AP/LAT CLINICAL INFORMATION: Back pain. IMAGES PROVIDED: AP, lateral and coned down views of the lumbar spine. COMPARISON: None. FINDINGS: The patient has had previous L4-5 posterior fixation and interbody fusion. No complication. No hardware loosening is indicated. No radiographic evidence of injury is noted. IMPRESSION: Uncomplicated appearing L4-5 fusion Interpreted By: Oniel Wagner MD ED BAILEY MD [address] [place] [address], [phone], [facility] 08/28/2024 11:10:51 Xr, Lumbosacral Spine, 2 Or 3 View : [facility] [address] [place] [address] Patient Name: GEORGIA CHOUDHARY Patient : 1955 Patient Ordering Provider: ALFRED BAILEY EXAM DATE: 12/02/2024 EXAM: XR LUMBAR AP/LAT CLINICAL INFORMATION: Back pain. Surgery follow-up IMAGES PROVIDED: AP, lateral and coned down views of the lumbar spine. COMPARISON: 08/26/2024 FINDINGS: Previous L4-5 posterior fixation and interbody fusion. There is no complication. No hardware loosening or fracture. No paraspinal disease. No radiographic evidence of injury is noted. IMPRESSION: Stable uncomplicated appearing L4-5 fusion Interpreted By: Oniel Wagner MD ED BAILEY MD [address] [place] [address], [phone] 12/02/2024 13:10:46 Procedures Surgical History Date Name Laterality Status Provider Name and Address Organization Details Recorded Time ligation of fallopian tube completed [facility] 04/29/2024 14:59:31 Back Surgery completed [facility] 04/29/2024 14:59:37 Breast reduction completed [facility] 04/29/2024 14:59:45 Appendectomy completed [facility] 04/29/2024 14:59:53 Imaging Results None recorded. Procedure Notes None recorded. Medical Equipment None Reported. Allergies No known drug allergies Medications Name Sig Start Date Stop Date Status Note LastModified by Organization Details LastModified Time Percocet 7.5 mg-325 mg tablet Take 1 tablet every 6 hours by oral route as needed. 2024 active Not Available Not Available Not Avai lable atorvastatin 20 mg tablet active Not Available Not Available Not Available prednisone 20 mg tablet TAKE ONE TABLET BY MOUTH TWICE DAILY FOR 5 DAYS --TAKE WITH FOOD-- active Not Available Not Available No t Available levothyroxine 88 mcg tablet TAKE 1 TABLET ONCE DAILY active Not Available Not Available No t Available gabapentin 300 mg capsule Take 1-2 capsules QID 2024 active Not Available Not Available Not Avai lable bupropion HCl XL 150 mg 24 hr tablet, extended release TAKE ONE TABLET BY MOUTH EVERY DAY active Not Available Not Available No t Available Vitals Date Recorded Body height Body mass index (BMI) Body weight Systolic And Diastolic Provider Name and Address Organization Details Last Updated DateTime 08/26/2024 165.1 cm 26.6 kg/m2 58894.78 g 120/70 mm[Hg] [facility] 08/26/2024 14:58:15 Date Recorded Body height Provider Name an d Address Organization Details Last Updated DateTime 12/02/2024 165.1 cm [facility] 12/02/2024 10:30:34 Date Recorded Body height Body mass index (BMI) Body weight Systolic And Diastolic Provider Name and Address Organization Details Last Updated DateTime 04/29/2024 165.1 cm 26.6 kg/m2 64577.78 g 122/72 mm[Hg] [facility] 04/29/2024 15:02:25 Date Recorded Body height Body mass index (BMI) Body weight Provider Name and Address Organization Details Last Updated DateTime 04/29/2024 165.1 cm 26.6 kg/m2 03858.78 g Kalpana Jonathan [facility] 04/29/2024 16:17:36 Social History None recorded. Functional Status None recorded. Mental Status None recorded. Family History Relationship Description Onset Age of this Age Resolved Age Notes LastModified by Organization Details LastModified Time Unspecified Relation Myocardial infarction [email or web address] Not available 04/12 14:59:01 Mother Aneurysm [email or web address] Not avai lable 08/26/2024 14:41:46 Medical History Condition Response TENS Unit for current problem N Massage Therapy for current problem N Traction for current problem N Gout N Neuro-modulating Drugs for current probl em N Emphysema N Narcotic Pain Medication for current pro blem N Black Lung N Steroid Pack for current problem N NSAID Use N COPD N Hypothyroidism Y Injections for current problem N Osteoporosis/Osteopenia Y Heart Attack ([place]) N Deep Vein Thrombosis N Mental Illness N Diabetes N Bleeding Disorder N Arthritis Y Tuberculosis N Genetic Disorder N AIDS/HIV N Chiropractor treatment for current probl em N Kidney Failure N Cancer N Stroke N Asthma N Ultrasound Treatment for current problem N Epilepsy/Seizures N Sleep Apnea N Thyroid Disorder N High Cholesterol Y Physical Therapy Treatments for current problem N Liver Disease N Pulmonary Embolism N Fibromyalgia N Dialysis N Hypertension N Kidney Disease N Gynecological HistoryNo gynecological history recorded. Obstetrics History GPAL:G 0 P 0 0 0 0 Past Encounters Encounter ID Performer Location Encounter Start Date Encounter Closed Date Diagnosis/Indication Diagnosis SNOMED-CT Code Diagnosis ICD10 Code Diagnosis IMO Codes Diagnosis Note [id number] RENEA NELSON PA-C [facility] [address] [place] [address] 04/29/2024 14:22:12 04/30/2024 04:47:50 Lumbar radiculopathy 977244802 M54.16 Lumbar spondylolisthesis [id number] 58690 M43.16 [id number] ADELINE WEBB PA-C [facility] [place] [facility] [address] [address] 04/29/2024 15:56:54 04/30/2024 04:43:58 Iliotibial band friction syndrome 065158885 M76.32 Assessment : Left IT band tightness Plan: History and physical exam ruled out gluteal tendon tear. No trochanter ic bursitis or intra-dale cular hip pain on exam. Xrays show only mild degenerati ve changes about both hips. At most, she may be dealing with IT band irritation along the lateral hip. But, I tend to think this is originatin g from the level of the hip. I do not find evidence of surgically relevant orthopedic injury to the left hip. I would recommend recheck with neurosurge ry to further rule out the lumbar spine. [id number] ALFRED BAILEY MD [facility] [address] [place] [address] 07/29/2024 12:44:58 08/06/2024 07:31:09 [id number] MARYLU TURPIN APRN [facility] [address] [place] [address] 08/26/2024 14:41:33 08/27/2024 07:20:06 Postoperative visit [id number] Z48.89 [id number] ALFRED BAILEY MD [facility] [place] [address] [place] [address] 12/02/2024 09:55:09 12/03/2024 04:54:44 Postoperative visit [id number] Z48.89 [id number] Health Concerns Section Related Observation LastModified by Organization Detai ls LastModified Time None Recorded Concern Status LastModified by Organization Details LastModified Time None Recorded Advance Directives Directive None Recorded Payers Insurance Date Sequence Insurance Name Policy Number Policy Leonardo Covered Member ID Leonardo Member ID Guarantor Name 11/29/2024 1 [place] B Ring [id number] [place] B Ring 11/29/2024 2 [employer] SUPPLEMENTAL - [place] (MEDICARE SUPPLEMENT) [place] B Ring [id number] Georgia B Ring Notes Date Note Type Note Provider Name and Address Organization Details Recorded Time 04/29/2024 text/html ROS as noted in the HPI Georgia Ring is a 69-year-old presenting to the clinic for evaluation of low back pain with radiation to L>R lower extremities. Patient presents with disc containing completed lumbar MRI through [facility] on 03/19/2024. Patient reports prior L5-S1 lumbar fusion completed in the by Dr. Parth Bailey with symptom relief to follow. Patient reports 3-4 months of what started out as left groin pain. Her pain has persisted and progressed to include the lateral left hip with radiation down lateral lower extremity with termination just past the knee. Patient reported low back pain at some point within the last few months, though this resolved. Patient additionally reports ache/soreness to bilateral anterior thighs, which is worse when moving from a sitting to standing position. Patient has completed recent chiropractic manipulation without lasting relief. Patient completed steriod pack with persistent symptoms. Patient denies bowel/bladder incontinence, saddle anesthesia and lower extremity weakness. Patient was seen by both Dr. Bailey and I in clinic today. RENEA NELSON PA-C [address] [place], [address], [facility] 04/29/2024 22:52:30 04/29/2024 text/html WHAT: Left Hip.WHEN: Several monthsHOW: no injury, Cristal wants to rule out hip, pain is in legSYMPTOMS:Pain is throbbing in nature.The patient does not have numbness or tinglingThey do not have popping and clickingThey are not able to sleep comfortably with this injury.Their pain is made better with resting the limbTheir pain is exacerbated by bearing weight on the affected limb, stepsOverall, the patient would say that their pain is not well-controlled at this time PAIN: /10X-RAY: LCMRI: noPT: noINJECTION: no ADELINE WEBB PA-C [address] [place], [address], [facility] 04/29/2024 17:04:18 08/26/2024 text/html ROS as noted in the HPI Ms. Choudhary is a 69-year-old female here with her status post L4-5 PLIF on 07/10/[address] Bailey. Patient states her left lower extremity radiculopathy has improved as it used to go from her back down to her foot, now she only reports pain and burning sensation on the side of her left hip and lateral upper thigh. She is taking gabapentin and she will start weaning off of it. Dr. Bailey recommends more time before deciding about getting injections with pain management for residual pain. We will see her back in 3 months with lumbar x-rays. She can wean off brace which was order due to her osteoporosis. She can start increasing weight bearing up to 25 pounds. Activity can be increased as tolerated. She is going to [place] in about 3 weeks for vacation and she knows she does not have to wear her back brace at all times. MARYLU TURPIN, [employer] [facility] [address] [place], [address], [facility] 08/26/2024 15:24:22 12/02/2024 text/html ROS as noted in the HPI Mrs. Choudhary underwent an L4-5 fusion July 10, 2024. She is doing well at this time. Her persistent left lower extremity radiculopathy has subsided. She does continue to have some numbness around her left ankle. ALFRED BAILEY MD [facility] [place], [address], [facility] 12/02/2024 10:34:32 OBGyn Episode No OBEpisode recorded.
--- OUTSIDE RECORDS SUMMARY | 2025-03-24 06:56 | XMS_ITS | Clinical Summary ---
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 I have a [facility] place to live 07/10/2024 Think about [...] Do you speak a language other than [place] at [facility]? No 07/10/2024 Do you want help [...] 07/10/2024 6:00 AM EST Plan of Treatment Health Maintenance Due Date Last Done Comments CT Colonography 1955 Colonoscopy 1955 Colorectal Cancer Screening 1955 DXA SCAN 1955 FOBT/FIT 1955 Fit-DNA (Cologuard) 1955 Sigmoidoscopy 1955 Hepatitis C Screening 01/10/1972 Breast Cancer Screening 1994 Shingles Vaccine (Zoster) (1 of 2) 01/10/2004 Medicare Initial AWV [id number] 12/12/2019 Falls Risk Screening 06/12/2024 COVID-19 VACCINE ( season) 2025 04/13/2021, 07/15/2020, 06/17/2020 Influenza Vaccine (#1) 2025 03/20/2023 Depression Screening (12+) 07/02/2025 07/02/2024 Tobacco Cessation Counseling and Screening (12+) 07/10/2025 07/10/2024 Respiratory Syncytial Virus (RSV) Adult or (1 - 1-dose 75+ series) 2029 DTAP/TDAP/TD VACCINES (2 - T d or Tdap) 10/02/2033 10/03/2023 Pneumococcal 50+ years Completed 10/03/2023 Medical Devices Implanted Type Area Grain Elevator Operator Device Identifier Shelf Expiration Date Model / Serial / Lot Sealant Durasl Spine 5ml [id number] - [id number] Implanted:Qty: 1 on 07/10/2024 by Keegan Bee MD at [facility] IMPLANTS N/A: Back [employer] MIN INV THERAPY GRP 04/11/[id number] / / [id number] Cage T/Plif 10mm [id number] - [id number] Implanted:Qty: 2 on 07/10/2024 by Keegan Bee MD at [facility] IMPLANTS N/A: Back J &J:DEPUY:DEPUY SPINE 05/11/2034 [id number] / / [id number] Scr Spne Johnson Fix 7x45mm - Implanted:Qty: 4 on 07/10/2024 by Keegan Bee MD at [facility] IMPLANTS N/A: Back J &J:DEPUY:DEPUY SPINE 5 / 5 / Mis Ken Ply Scrw Set Ti - [id number] Implanted:Qty: 4 on 07/10/2024 by Keegan Bee MD at [facility] IMPLANTS N/A: Back J &J:DEPUY:DEPUY SPINE 0 / 0 / Mariano Prebnt 30mm [id number] - [id number] Implanted:Qty: 2 on 07/10/2024 by Keegan Bee MD at [facility] IMPLANTS N/A: Back J &J:DEPUY:DEPUY SPINE 0 / 0 / Bone Vivigen Formable Cell [facility] [id number] - [id number] Implanted:Qty: 1 on 07/10/2024 by Keegan Bee MD at [facility] IMPLANTS N/A: Back LIFENET:LIFENET TRANSPLANT SRV 06/27/2025 [id number] 2 / [id number] / Insurance MEDICARE PART A B [facility] [place] SUPP Advance Directives For more information, please contact: [phone] Documents on File Type Date Recorded 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
--- NOTE | 2025-03-24 06:58 | MR_ITS ---
FINAL REPORT TECHNIQUE: Multiplanar and multisequence MR imaging was obtained through the thoracic spine. CLINICAL HISTORY: ACUTE THORACIC BACK PAIN pain between shoulders nki COMPARISON: None FINDINGS: There is normal alignment of the thoracic vertebral bodies in the sagittal plane. Vertebral body height is preserved. There is no bone marrow edema or pathologic marrow replacement. Signal intensity within the substance of the spinal cord is normal. There is a 10 mm nodule noted in the left upper lobe. Annular bulges are present at the T3-4, T4-5, and T5-6 levels without significant canal stenosis. At the T6-7 level there is a central disc protrusion with mild mass effect upon the anterior thecal sac. At the T7-8 level there is a small left paracentral disc protrusion. IMPRESSION: 1. Small disc protrusions are identified at the T6-7 and T7-8 levels as described. 2. 10 mm left upper lobe nodule. Recommend PET/CT if prior chest CTs have not been performed. Reviewed, Interpreted and Dictated by Patricia Ware MD Transcribed by Karo Gallardo Authenticated and [facility]
== END 2025-03-24 23:59 | disposition home or self-care (01) ==
LOC: RAD 06:54
PROVIDERS: PCP Nurse Practitioner Family; Visit Provider Nurse Practitioner Family
DX: M51.24 Other intervertebral disc displacement, thoracic region (principal); R91.1 Solitary pulmonary nodule
CPT/HCPCS: 72146

== ENCOUNTER 2025-04-14 09:40 | Outpatient (CLI) | payer MEDICARE, OTHER, SELFPAY ==
--- NOTE | 2025-04-14 09:44 | US_ITS ---
FINAL REPORT CLINICAL HISTORY: MASS FINDINGS: Limited sonographic images were obtained of the medial upper right chest wall. There are several subcentimeter hypoechoic soft tissue nodules which are avascular and could represent small lipomas. There is an 11 mm, also avascular, abnormality along the superficial surface of the pectoralis muscle which is nonspecific. No fluid collections identified. IMPRESSION: Nonspecific 11 mm nodule along the anterior right chest wall, indeterminate. Two small likely lipomas also noted along the right chest wall. Reviewed, Interpreted and Dictated by Patricia Ware MD Transcribed by Susie Resendez Authenticated and . [facility]
--- OUTSIDE RECORDS SUMMARY | 2025-04-14 09:45 | XMS_ITS | Clinical Summary ---
Author Organization [employer] ([place], [place], [place], [place], [place]) Address [address] [place] [address] Care Team Providers Care Electrophysiology Scientist Name Role Phone [facility] Connection, Find-A-Doc Primary Care Provider [...] your living situation today? I have a [facility] place to live 07/10/2024 Think about [...] Do you speak a language other than Uzbek at [facility]? No 07/10/2024 Do you want help with [...] Completed 10/03/2023 Medical Devices Implanted Type Area Absorption And Adsorption Engineer Device Identifier Shelf Expiration Date Model / Serial / Lot Sealant Durasl Spine 5ml [id number] - [id number] Implanted:Qty: 1 on 07/10/2024 by Keegan Bee MD at [facility] IMPLANTS N/A: Back MEDTRONIC MIN INV THERAPY GRP 04/11/2025409828 / / [id number] Cage T/Plif 10mm [id number] - [id number] Implanted:Qty: 2 on 07/10/2024 by Keegan Bee MD at [facility] IMPLANTS N/A: Back J &J:DEPUY:DEPUY SPINE 05/11/2034 [id number] / / [id number] Scr Spne Johnson Fix 7x45mm - Implanted:Qty: 4 on 07/10/2024 by Keegan Bee MD at [facility] IMPLANTS N/A: Back J &J:DEPUY:DEPUY SPINE 5 / 5 / Mis Ken Ply Scrw Set Ti - [id number] Implanted:Qty: 4 on 07/10/2024 by Keegan Bee MD at [facility] IMPLANTS N/A: Back J &J:DEPUY:DEPUY SPINE 0 / 0 / Mariano Prebnt 30mm 179-71-030 - [id number] Implanted:Qty: 2 on 07/10/2024 by Keegan Bee MD at [facility] IMPLANTS N/A: Back J &J:DEPUY:DEPUY SPINE 0 / 0 / Bone Vivigen Formable Cell [facility] Bl-1600-002 - [id number] Implanted:Qty: 1 on 07/10/2024 by Keegan Bee MD at [facility] IMPLANTS N/A: Back LIFENET:LIFENET TRANSPLANT SRV 06/27/2025 BL-1600-00 2 / [id number] / Insurance MEDICARE PART A B [facility] SUPP Advance Directives For more information, please contact: [phone] Documents on File Type Date Recorded Patient Principal Engineer Expl anation Power of Certified Physician'S Assistant 07/10/2024 Advance Directives and Living Will 07/03/2024 * Full Code (Latest Code Status on File) Date Activated Date Inactivated Comments 07/10/2024 1:19 PM 07/11/2024 5:32 PM Care Teams Electrophysiology Scientist Relationship Specialty Start Date End Date [facility] Connection, Find-A-Doc [facility] [place] [address] PCP - General 07/03/24
--- OUTSIDE RECORDS SUMMARY | 2025-04-14 09:45 | XMS_ITS | Referral Summary ---
Author Organization [employer] ([place], [place], [place], [place], [place]) Address [address] [place] [address] Care Team Providers Care Outside Plant Field Engineer Name Role Phone [facility] Connection, Find-A-Doc Primary Care Provider Allergies No [...] your living situation today? I have a [facility] place to live 07/10/2024 Think about the [...] Do you speak a language other than Telugu at [facility]? No 07/10/2024 Do you want help with [...] on file Medical Devices Implanted Type Area Photograph Enlarger Device Identifier Shelf Expiration Date Model / Serial / Lot Sealant Durasl Spine 5ml [id number] - [id number] Implanted:Qty: 1 on 07/10/2024 by Keegan Bee MD at [facility] IMPLANTS N/A: Back [employer]IC MIN INV THERAPY GRP 04/11/2025074358 / / [id number] Cage T/Plif 10mm [id number] - [id number] Implanted:Qty: 2 on 07/10/2024 by Keegan Bee MD at [facility] IMPLANTS N/A: Back J &J:DEPUY:DEPUY SPINE 05/11/2034 [id number] / / [id number] Scr Spne Johnson Fix 7x45mm 5 - [id number] Implanted:Qty: 4 on 07/10/2024 by Keegan Bee MD at [facility] IMPLANTS N/A: Back J &J:DEPUY:DEPUY SPINE 5 / 5 / Mis Ken Ply Scrw Set Ti - [id number] Implanted:Qty: 4 on 07/10/2024 by Keegan Bee MD at [facility] IMPLANTS N/A: Back J &J:DEPUY:DEPUY SPINE 0 / 0 / Mariano Prebnt 30mm 1796-71-030 - [id number] Implanted:Qty: 2 on 07/10/2024 by Keegan Bee MD at [facility] IMPLANTS N/A: Back J &J:DEPUY:DEPUY SPINE 0 / 0 / Bone Vivigen Formable Cell [facility] Bl-1600-002 - [id number] Implanted:Qty: 1 on 07/10/2024 by Keegan Bee MD at [facility] IMPLANTS N/A: Back LIFENET:LIFENET TRANSPLANT SRV 06/27/2025 BL-1600-00 2 / [id number] / Insurance [place] [id number] MEDICARE PART A B Advance Directives For more information, please contact: [phone] Documents on File Type Date Recorded Patient Parking Lot Attendant And Cashier Expl anation Power of Oil Burner Mechanic 07/10/2024 Advance Directives and Living Will 07/03/2024 * Full Code (Latest Code Status on File) Date Activated Date Inactivated Comments 07/10/2024 1:19 PM 07/11/2024 5:32 PM Care Teams Outside Plant Field Engineer Relationship Specialty Start Date End Date [facility] Connection, Find-A-Doc [facility] Connection Find-a-Doc [place], [place] [id number] PCP - General 07/03/24
== END 2025-04-14 23:59 | disposition home or self-care (01) ==
LOC: RAD 09:42
PROVIDERS: PCP Nurse Practitioner Family; Visit Provider Nurse Practitioner Family
DX: R22.2 Localized swelling, mass and lump, trunk (principal)
CPT/HCPCS: 76604

== ENCOUNTER 2025-04-21 08:43 | Outpatient (CLI) | payer MEDICARE, OTHER, SELFPAY ==
[2025-04-21] MEDS: DENOSUMAB 60 MG/ML SYRINGE SUBCUT (08:52)
--- OUTSIDE RECORDS SUMMARY | 2025-04-21 09:02 | XMS_ITS | Data Portability ---
Author Organization [facility] Address [address] [place] [address] Assessment Encounter Date Assessment Date Assessment LastModified by Organization Details LastModified Time 04/29/2024 04/29/2024 Assessment: Georgia Choudhary is a 69-year-old presenting to the clinic for evaluation of low back pain with radiation to L>R lower extremities. Patient presents with disc containing completed lumbar MRI through [facility] on 03/19/2024. Patient reports prior L5-S1 [...] with disc containing completed lumbar MRI through [facility] on 03/19/2024. Imaging reveals developing spondylolisthesis and enlarged joints, indicating potential instability, to L4-5 with fusion to L5-S1. Plan; Refer to orthopedics for evaluation of left hip Lumbar dynamic xrays, will call with results and plan moving forward. olohre Not available 04/29/2024 22:52:01 07/29/2024 07/29/2024 Ms. Choudhary present s today status post L4-L5 PLIF 07/10. [place] removed with no issues or complications. All [...] increased as tolerated. She is going to [place] in about 3 weeks for vacation and [...] radiologist report. Lumbar x-ray on 08/26/2024 at [facility] show Hardware in stable position with no [...] , 2 or 3 view [place] [facility] [address] [place] [address] Patibryanna t Name: JULIETH Rees t : [...] Breana bui MD on 2023 4:56 PM [facility] [place] [address] , [place], [address], 05/02/2024 13:38:28 05/07/20 24 05/07/2024 imagi ng/di agnos tic resul t No observ ation record ed. [facility] [address], [place], [address], 05/24/2024 20:49:49 05/20/20 24 05/07/2024 XR, lumbo sacra l spine , 4 or more view No observ ation record ed. [email or web address] [facility] [address], [place], [place], [address], 09/10/2024 12:03:20 08/27/19 25 08/26/2024 XR, lumbo sacra l spine , 2 or 3 view [facility] [facility] [address] [facility] [place] [address] Patibryanna t Name: JULIETH bhatti : [address] Orderi ng Provid er: ZULEYMA MENDEZT EXAM DATE: 2024 EXAM: XR LUMBAR AP/LAT CLINIC AL INFORM ATION: Back pain. IMAGES PROVID ED: AP, latera l and coned down views of the lumbar spine. COMPAR SHAYE: None. FINDIN GS: The patien t has had previo us L4-5 block operator ior fixati on and interb ania fusion . No compli cation . No hardwa re loosen ing is indica shelia. No radiog raphic eviden ce of injury is noted. IMPRES KELSY: Uncomp licate d appear ing L4-5 fusion Interp reted By: Oniel Wagner MD Electr onical ly Signed By: Oniel Wagner MD on 025 1:50 PM [facility] Radiology [facility] [address] [place], [address], 08/28/2024 15:23:10 12/03/19 25 12/02/2024 XR, lumbo sacra l spine , 2 or 3 view [facility] [address] [facility] [place] [address] Patibryanna t Name: JULIETH bhatti : [address] Orderi ng Provid er: ZULEYMA BAILEY EXAM DATE: 2024 EXAM: XR LUMBAR AP/LAT CLINIC AL INFORM ATION: Back pain. Surger y follow -up IMAGES PROVID ED: AP, latera l and coned down views of the lumbar spine. COMPAR SHAYE: 025 FINDIN GS: Previo us L4-5 block operator ior fixati on and interb ania fusion [...] Wagner MD on 025 10:17 AM WILLIAM [facility] Radiology [address] [place], [address], 12/02/2024 20:35:54 Result Notes Documentation Provider Name and Address Organization Details Recorded Time Xr, Hip, Unilateral, 2 Or 3 View : [facility] [place] [address] [place] [address] Patient Name: GEORGIA CHOUDHARY Patient : 1955 [...] Interpreted By: Helio Garcia MD Kelli Mejia [facility] 05/02/2024 13:38:28 Xr, Lumbosacral Spine, 2 Or 3 View : [facility] [address] [place] [address] Patient Name: GEORGIA CHOUDHARY Patient : 1955 [...] By: Oniel Wagner MD ED BAILEY MD [address] [place] [address], [phone], [facility] 08/28/2024 11:10:51 Xr, Lumbosacral Spine, 2 Or 3 View : [facility] [address] [place] [address] Patient Name: GEORGIA CHOUDHARY Patient : 1955 [...] By: Oniel Wagner MD ED BAILEY MD [address] [place] [address], [phone] 12/02/2024 13:10:46 Procedures Surgical History Date Name Laterality Status Provider Name and Address Organization Details Recorded Time ligation of fallopian tube completed [facility] 04/29/2024 14:59:31 Back Surgery completed [facility] 04/29/2024 14:59:37 Breast reduction completed [facility] 04/29/2024 14:59:45 Appendectomy completed [facility] 04/29/2024 14:59:53 Imaging Results None [...] Updated DateTime 08/26/2024 165.1 cm 26.6 kg/m2 04364.78 g 120/70 mm[Hg] [facility] 08/26/2024 14:58:15 Date Recorded Body height Provider Name an d Address Organization Details Last Updated DateTime 12/02/2024 165.1 cm [facility] 12/02/2024 10:30:34 Date Recorded Body height Body mass index (BMI) Body weight Systolic And Diastolic Provider Name and Address Organization Details Last Updated DateTime 04/29/2024 165.1 cm 26.6 kg/m2 20262.78 g 122/72 mm[Hg] [facility] 04/29/2024 15:02:25 Date Recorded Body height Body mass index (BMI) Body weight Provider Name and Address Organization Details Last Updated DateTime 04/29/2024 165.1 cm 26.6 kg/m2 47229.78 g Kalpana Jonathan [facility] 04/29/2024 16:17:36 Social History None recorded. Functional [...] Traction for current problem N Gout N Emphysema N Narcotic Pain Medication for current pro blem N COPD N Hypothyroidism Y Injections for current problem N Deep Vein Thrombosis N Arthritis Y Cancer N Stroke N High Cholesterol Y Liver Disease N Fibromyalgia N Dialysis N Kidney Disease N Neuro-modulating Drugs for current probl em N Black Lung N Steroid Pack for current problem N NSAID Use N Osteoporosis/Osteopenia Y Heart Attack (IA) N Mental Illness N Diabetes N Bleeding Disorder N Tuberculosis N Genetic Disorder N AIDS/HIV N Chiropractor treatment for current probl em N Kidney Failure N Asthma N Ultrasound Treatment for current problem N Epilepsy/Seizures N Sleep Apnea N Thyroid Disorder N Physical Therapy Treatments for current problem N Pulmonary Embolism N Hypertension N Gynecological HistoryNo gynecological history recorded. Obstetrics History GPAL:G 0 P 0 0 0 0 Past Encounters Encounter ID Performer Location Encounter Start Date Encounter Closed Date Diagnosis/Indication Diagnosis SNOMED-CT Code Diagnosis ICD10 Code Diagnosis IMO Codes Diagnosis Note [id number] RENEA NELSON PA-C [facility] [address] [place] [address] 04/29/2024 14:22:12 04/30/2024 04:47:50 Lumbar radiculopathy 897280651 M54.16 Lumbar spondylolisthesis 7114968901 70180 M43.16 [id number] ADELINE WEBB PA-C [facility] [place] [facility] [address] [address] 04/29/2024 15:56:54 04/30/2024 04:43:58 Iliotibial band friction syndrome [id number] M76.32 Assessment : Left IT band tightness [...] to further rule out the lumbar spine. [id number] ALFRED BAILEY MD [facility] [address] [place] [address] 07/29/2024 12:44:58 08/06/2024 07:31:09 [id number] MARYLU TURPIN APRN [facility] [address] [place] [address] 08/26/2024 14:41:33 08/27/2024 07:20:06 Postoperative visit [id number] Z48.89 [id number] ALFRED BAILEY MD [facility] [place] [address] [place] [address] 12/02/2024 09:55:09 12/03/2024 04:54:44 Postoperative visit [id number] Z48.89 [id number] Health Concerns Section Related Observation LastModified by Organization Detai ls LastModified Time None Recorded Concern Status LastModified by Organization Details LastModified Time None Recorded Advance Directives Directive None Recorded Payers Insurance Date Sequence Insurance Name Policy Number Policy Leonardo Covered Member ID Leonardo Member ID Guarantor Name 11/29/2024 1 [place] B Ring [id number] [place] B Ring 11/29/2024 2 [employer] SUPPLEMENTAL - [place] (MEDICARE SUPPLEMENT) [place] B Ring [id number] [place] B Ring Notes Date Note Type Note Provider Name and Address Organization Details Recorded Time 04/29/2024 text/html ROS as noted in the HPI Georgia Ring is a 69-year-old presenting to the clinic for evaluation of low back pain with radiation to L>R lower extremities. Patient presents with disc containing completed lumbar MRI through [facility] on 03/19/2024. Patient reports prior L5-S1 [...] in clinic today. RENEA NELSON PA-C [address] [place], [address], [facility] 04/29/2024 22:52:30 04/29/2024 text/html WHAT: Left Hip.WHEN: [...] LCMRI: noPT: noINJECTION: no ADELINE WEBB PA-C [address] [place], [address], [facility] 04/29/2024 17:04:18 08/26/2024 text/html ROS as noted [...] increased as tolerated. She is going to [place] in about 3 weeks for vacation and she knows she does not have to wear her back brace at all times. MARLYU TURPIN, HOTEL CONTROLLER [address] [place], [address], [facility] 08/26/2024 15:24:22 12/02/2024 text/html ROS as noted in the HPI Mrs. Choudhary underwent an L4-5 fusion July 10, 2024. She is doing well at this time. Her persistent left lower extremity radiculopathy has subsided. She does continue to have some numbness around her left ankle. LAFRED BAILEY MD [facility] [place], [address], [facility] 12/02/2024 10:34:32 OBGyn Episode No OBEpisode recorded.
--- OUTSIDE RECORDS SUMMARY | 2025-04-21 09:02 | XMS_ITS | Referral Summary ---
Author Organization [employer] ([place], [place], [place], [place], [place]) Address [address] [place] [address] Care Team Providers Care Chief Radiology Name Role Phone [facility] Connection, Find-A-Doc Primary Care Provider Allergies [...] your living situation today? I have a [facility] place to live 07/10/2024 Think about [...] Do you speak a language other than Comoran at [facility]? No 07/10/2024 Do you want help [...] on file Medical Devices Implanted Type Area Vp Integrity Device Identifier Shelf Expiration Date Model / Serial / Lot Sealant Durasl Spine 5ml [id number] - [id number] Implanted:Qty: 1 on 07/10/2024 by Keegan Bee MD at [facility] IMPLANTS N/A: Back [employer] MIN INV THERAPY GRP 04/11/2025473040 / / [id number] Cage T/Plif 10mm [id number] - [id number] Implanted:Qty: 2 on 07/10/2024 by Keegan Bee MD at [facility] IMPLANTS N/A: Back J &J:DEPUY:DEPUY SPINE 05/11/2034 [id number] / / [id number] Scr Spne Johnson Fix 7x45mm 5 - [id number] Implanted:Qty: 4 on 07/10/2024 by Keegan Bee MD at [facility] IMPLANTS N/A: Back J &J:DEPUY:DEPUY SPINE 5 / 5 / Mis Ken Ply Scrw Set Ti - [id number] Implanted:Qty: 4 on 07/10/2024 by Keegan Bee MD at [facility] IMPLANTS N/A: Back J &J:DEPUY:DEPUY SPINE 0 / 0 / Mariano Prebnt 30mm 1796-71-030 - [id number] Implanted:Qty: 2 on 07/10/2024 by Keegan Bee MD at [facility] IMPLANTS N/A: Back J &J:DEPUY:DEPUY SPINE 0 / 0 / Bone Vivigen Formable Cell [facility] Bl-1600-002 - [id number] Implanted:Qty: 1 on 07/10/2024 by Keegan Bee MD at [facility] IMPLANTS N/A: Back LIFENET:LIFENET TRANSPLANT SRV 06/27/2025 BL-1600-00 2 / [id number] / Insurance [place] [id number] MEDICARE PART A B Advance Directives For more information, please contact: [phone] Documents on File Type Date Recorded Patient Vp Corporate Development Expl anation Power of Safety And Health Consultant 07/10/2024 Advance Directives and Living Will 07/03/2024 * Full Code (Latest Code Status on File) Date Activated Date Inactivated Comments 07/10/2024 1:19 PM 07/11/2024 5:32 PM Care Teams Chief Radiology Relationship Specialty Start Date End Date [facility] Connection, Find-A-Doc [facility] Connection Find-a-Doc [place], [place] [id number] PCP - General 07/03/24
--- OUTSIDE RECORDS SUMMARY | 2025-04-21 09:02 | XMS_ITS | Clinical Summary ---
Author Organization [employer] ([place], [place], [place], [place], [place]) Address [address] [place] [address] Care Team Providers Care Tufter Name Role Phone [facility] Connection, Find-A-Doc Primary Care [...] your living situation today? I have a [facility] place to live 07/10/2024 Think about the [...] Do you speak a language other than Montenegrin at [facility]? No 07/10/2024 Do you want help [...] Completed 10/03/2023 Medical Devices Implanted Type Area Counseling Aide Device Identifier Shelf Expiration Date Model / Serial / Lot Sealant Durasl Spine 5ml [id number] - [id number] Implanted:Qty: 1 on 07/10/2024 by Keegan Bee MD at [facility] IMPLANTS N/A: Back [employer] MIN INV THERAPY GRP 04/11/2025218255 / / [id number] Cage T/Plif 10mm [id number] - [id number] Implanted:Qty: 2 on 07/10/2024 by Keegan Bee MD at [facility] IMPLANTS N/A: Back J &J:DEPUY:DEPUY SPINE 05/11/2034 [id number] / / [id number] Scr Spne Johnson Fix 7x45mm - Implanted:Qty: 4 on 07/10/2024 by Keegan Bee MD at [facility] IMPLANTS N/A: Back J &J:DEPUY:DEPUY SPINE 5 / 5 / Mis Ken Ply Scrw Set Ti - [id number] Implanted:Qty: 4 on 07/10/2024 by Keegan Bee MD at [facility] IMPLANTS N/A: Back J &J:DEPUY:DEPUY SPINE 0 / 0 / Mariano Prebnt 30mm 179-71-030 - [id number] Implanted:Qty: 2 on 07/10/2024 by Keegan Bee MD at [facility] IMPLANTS N/A: Back J &J:DEPUY:DEPUY SPINE 0 / 0 / Bone Vivigen Formable Cell [facility] Bl-1600-002 - [id number] Implanted:Qty: 1 on 07/10/2024 by Keegan Bee MD at [facility] IMPLANTS N/A: Back LIFENET:LIFENET TRANSPLANT SRV 06/27/2025 BL-1600-00 2 / [id number] / Insurance MEDICARE PART A B [facility] SUPP Advance Directives For more information, please contact: [phone] Documents on File Type Date Recorded Patient Biology Teacher Expl anation Power of Shuttle Preparation Supervisor 07/10/2024 Advance Directives and Living Will 07/03/2024 * Full Code (Latest Code Status on File) Date Activated Date Inactivated Comments 07/10/2024 1:19 PM 07/11/2024 5:32 PM Care Teams Tufter Relationship Specialty Start Date End Date [facility] Connection, Find-A-Doc [facility] [place] [address] PCP - General 07/03/24
== END 2025-04-21 23:59 | disposition home or self-care (01) ==
PROVIDERS: PCP Nurse Practitioner Family; Visit Provider Nurse Practitioner Family
DX: M81.0 Age-related osteoporosis without current pathological fracture (principal)
CPT/HCPCS: 96372; J0897